=== PATIENT | male | born 1970 | race Caucasian/White ===

== ENCOUNTER → 2017-04-21 | Outpatient (CLI) | payer OTHER ==
[2017-04-21 08:23] LABS: Blood Urea Nitrogen 13 mg/dL (9-20)
--- NOTE | 2017-04-21 09:01 | CT ---
EXAMINATION TYPE: CT chest wo/w con DATE OF EXAM: 04/21/2017 COMPARISON: Radiographs 03/10/2017 HISTORY: 47-year-old male Abn CXR, SOB TECHNIQUE: Scanning of the chest before and after the administration of 100 mL of Omnipaque 300. Cor onal/sagittal reconstructions performed. CT DLP: 1335.5mGycm. Automatic exposure control utilized for a dose reduction. FINDINGS: Heart is normal size without pericardial effusion. Aorta is normal caliber with conventional arch vessel branching anatomy. Bilateral gynecomastia partially visualized. Precarinal lymph node measures 8 mm. No thoracic lymphad enopathy by CT size criteria. Evaluation of the lungs shows interval clearance of much of the density seen on 03/10/2017 radiograph s. There is mild to moderate diffuse bronchial wall thickening and some strandy atelectasis at the an terior medial mid to lower lungs. No consolidation or pleural effusion. No suspicious pulmonary nodul e or mass is seen. Visualized upper abdomen shows a small 1 cm low-density nodule in the left adrenal gland with attenua tion on noncontrast series of -2 Hounsfield units compatible with a lipid rich adrenal adenoma. Hilar splenule. Bones: Mild endplate spondylosis midthoracic spine. No osseous destructive process. IMPRESSION: 1. Interval clearance of the densities seen on prior chest x-ray. No suspicious pulmonary nodule and no evidence for chronic interstitial lung disease. 2. Mild to moderate bronchial wall thickening could represent bronchitis or chronic asthma.
== END | disposition home or self-care (01) ==
LOC: RADCTMAIN 07:54
PROVIDERS: ATTEND Family Medicine
DX: J98.09 Other diseases of bronchus, not elsewhere classified (principal); R91.8 Other nonspecific abnormal finding of lung field
CPT/HCPCS: 82565; 84520; 71270; 36415; Q9967

== ENCOUNTER 2017-10-24 22:46 | Emergency (ER) | payer BC, OTHER ==
[2017-10-24 23:13] LABS: Glucose,Whole Blood 467 mg/dL (75-99)
[2017-10-24] MEDS ORDERED: SODIUM CHLORIDE 0.9% 1,000 ML IV ONE (23:22)
[2017-10-24 23:32] LABS: Appearance,Urine Clear (Clear); Bilirubin,Urine Negative (Negative); Blood,Urine Negative (Negative); Color,Urine Light Yellow; Glucose,Urine (UA) 4+ (Negative); Ketones,Urine Negative (Negative); Leukocyte Esterase,Urine Negative (Negative); Nitrite,Urine Negative (Negative); Protein,Urine Negative (Negative); Specific Gravity,Urine 1.027 (1.001-1.035); Urobilinogen,Urine <2.0 mg/dL (<2.0)
[2017-10-24 23:37] LABS: Basophils # (A) 0.1 k/uL (0-0.2); Basophils % (A) 1 %; Eosinophils # (A) 0.4 k/uL (0-0.7); Eosinophils % (A) 3 %; HCT 44.9 % (39.0-53.0); HGB 14.9 gm/dL (13.0-17.5); Lymphocytes # (A) 2.5 k/uL (1.0-4.8); Lymphocytes % (A) 21 %; MCH 28.6 pg (25.0-35.0); MCHC 33.1 g/dL (31.0-37.0); MCV 86.3 fL (80.0-100.0); Monocytes # (A) 0.5 k/uL (0-1.0); Monocytes % (A) 4 %; Neutrophils # (A) 8.5 k/uL (1.3-7.7); Neutrophils % (A) 70 %; Platelet Count 285 k/uL (150-450); RDW 12.5 % (11.5-15.5); WBC 12.1 k/uL (3.8-10.6)
--- NOTE | 2017-10-24 23:44 | ED ---
General Adult HPI - General Chief complaint: Recheck/Abnormal Lab/Rx Stated complaint: high sugar,vision problems Time Seen by Provider: 10/24/17 23:22 Source: patient, RN notes reviewed Mode of arrival: ambulatory Limitations: no limitations - History of Present Illness Initial comments: This is a 47-year-old male who presents to the emergency department with chief complaint of high blood sugar. Patient states he was diagnosed with type 2 diabetes 6-8 years ago. He states that he takes metformin, Lantus and Glimiperide. Patient states that he recently obtained a new job. 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 He states that because of this, he has become noncompliant with his medications as he thought he was doing well. He states that he does not take his medications regularly like he is supposed to. He does state that he sees a doctor at [facility] [place]. Patient states that he was told by the doctor that if he ever developed a blood sugar greater than 400 he was to present to the emergency department. Patient states that he woke up at 10 PM this evening and his vision seemed blurry. He states that he didn't feel very well so he checked his blood sugar. He states that it was in the 400s. Patient states that at that time, he gave himself 40 units of Lantus. This was at approximately 10:30. Patient denies any recent fevers or chills, chest pain or shortness of breath, abdominal pain, nausea or vomiting, dysuria or hematuria, dizziness or headache. Patient denies any other medical issues or medications. - Related Data Home Medications Medication Instructions Recorded Confirmed Glimepiride [Amaryl] 4 mg PO AC-BID 03/04/17 10/24/17 Insulin Glargine [Lantus] 40 unit SQ HS 03/04/17 10/24/17 metFORMIN HCL 1,000 mg PO BID 03/04/17 10/24/17 Allergies Allergy/AdvReac Type Severity Reaction Status Date / Time No Known Allergies Allergy Verified 10/24/17 23:07 Review of Systems ROS Statement: Those systems with pertinent positive or pertinent negative responses have been documented in the HPI. ROS Other: All systems not noted in ROS Statement are negative. Past Medical History Past Medical History: Diabetes Mellitus History of Any Multi-Drug Resistant Organisms: None Reported Past Surgical History: Ear Surgery Past Anesthesia/Blood Transfusion Reactions: No Reported Reaction Past Psychological History: Depression Smoking Status: Current every day smoker Past Alcohol Use History: None Reported Past Drug Use History: Marijuana - Past Family History Father History Unknown: Yes Mother History Unknown: Yes General Exam - General Exam Comments Initial Comments: General: Awake and alert, well-developed; in no apparent distress. Obese white male lying comfortably on ED stretcher. HEENT: Head atraumatic, normocephalic. Pupils are equal, round and reactive to light. Extraocular movements intact. Oropharynx moist without erythema or exudate. Neck: Supple. Normal ROM. Cardiovascular: Regular rate and rhythm. No murmurs, rubs or gallops. Chest symmetrical. Respiratory: Lungs clear to auscultation bilaterally. No wheezes, rales or rhonchi. Normal respiratory effort with no use of accessory muscles. Abdomen: Soft, non-tender, non-distended. No rigidity, rebound or guarding. Normal bowel sounds in all 4 quadrants. Musculoskeletal: Normal ROM, no tenderness bilateral upper and lower extremities. Skin: [place], warm and dry without rashes or lesions. Neurological: Alert and oriented x3. CN II-XII grossly intact. Speech is fluent and answers are appropriate. No focal neuro deficits. Psychiatric: Normal mood and affect. No overt signs of depression or anxiety noted. Limitations: no limitations Course Vital Signs 10/24/17 10/24/17 10/25/17 22:50 23:35 01:24 Temperature 98.6 F Pulse Rate 88 81 76 Respiratory 20 17 16 Rate Blood Pressure 133/82 117/63 99/58 O2 Sat by Pulse 96 95 97 Oximetry 10/25/17 02:49 Temperature 98.2 F Pulse Rate 62 Respiratory 17 Rate Blood Pressure 95/56 O2 Sat by Pulse 97 Oximetry Medical Decision Making - Medical Decision Making This is a 47-year-old male who presents to the emergency department chief complaint of hyperglycemia. Patient has been noncompliant with his medications. He is a type II diabetic. On presentation to the emergency department, patient is found to have a glucose of 467. CBC revealed a slightly elevated white blood cell count of 12.1 with a left shift at 8.5. CMP was essentially unremarkable other than a glucose at 454. UA revealed 4+ glucose, negative ketones. Acetone is negative. Patient given 2 L bolus and 12 units of subcutaneous Humalog. Blood glucose level has stabilized. Patient's vital signs have been stable and he is in no acute distress. He will be discharged home at this time. Recommended following up with his doctor and to regularly take his prescribed medications for diabetes. Patient is in agreement with plan and voices understanding. He will be discharged home at this time. All questions were answered. - Lab Data Result diagrams: 10/24/17 23:08 10/24/17 23:08 Lab Results 10/24/17 10/24/17 10/24/17 Range/Units 23:08 23:08 23:08 WBC 12.1 H (3.8-10.6) k/uL RBC 5.20 (4.30-5.90) m/uL Hgb 14.9 (13.0-17.5) gm/dL Hct 44.9 (39.0-53.0) % MCV 86.3 (80.0-100.0) fL MCH 28.6 (25.0-35.0) pg MCHC 33.1 (31.0-37.0) g/dL RDW 12.5 (11.5-15.5) % Plt Count 285 (150-450) k/uL Neutrophils % 70 % Lymphocytes % 21 % Monocytes % 4 % Eosinophils % 3 % Basophils % 1 % Neutrophils # 8.5 H (1.3-7.7) k/uL Lymphocytes # 2.5 (1.0-4.8) k/uL Monocytes # 0.5 (0-1.0) k/uL Eosinophils # 0.4 (0-0.7) k/uL Basophils # 0.1 (0-0.2) k/uL Sodium 136 L (137-145) mmol/L Potassium 4.6 (3.5-5.1) mmol/L Chloride 102 (98-107) mmol/L Carbon Dioxide 23 (22-30) mmol/L Anion Gap 11 mmol/L BUN 21 H (9-20) mg/dL Creatinine 0.90 (0.66-1.25) mg/dL Est GFR (CKD-EPI)AfAm >90 (>60 ml/min/1.73 sqM) Est GFR (CKD-EPI)NonAf >90 (>60 ml/min/1.73 sqM) Glucose 454 H* (74-99) mg/dL POC Glucose (mg/dL) (75-99) mg/dL POC Glu Flat Folder ID Calcium 9.3 (8.4-10.2) mg/dL Phosphorus 4.2 (2.5-4.5) mg/dL Magnesium 1.9 (1.6-2.3) mg/dL Total Bilirubin 0.3 (0.2-1.3) mg/dL AST 25 (17-59) U/L ALT 33 (21-72) U/L Alkaline Phosphatase 119 (38-126) U/L Total Protein 7.0 (6.3-8.2) g/dL Albumin 4.1 (3.5-5.0) g/dL Urine Color Light Yellow Urine Appearance Clear (Clear) Urine pH 6.0 (5.0-8.0) Ur Specific [place] 1.027 (1.001-1.035) Urine Protein Negative (Negative) Urine Glucose (UA) 4+ H (Negative) Urine Ketones Negative (Negative) Urine Blood Negative (Negative) Urine Nitrite Negative (Negative) Urine Bilirubin Negative (Negative) Urine Urobilinogen <2.0 (<2.0) mg/dL Ur Leukocyte Esterase Negative (Negative) Acetone, Qual Negative (Negative) 10/24/17 10/25/17 10/25/17 Range/Units 23:11 01:06 02:48 WBC (3.8-10.6) k/uL RBC (4.30-5.90) m/uL Hgb (13.0-17.5) gm/dL Hct (39.0-53.0) % MCV (80.0-100.0) fL MCH (25.0-35.0) pg MCHC (31.0-37.0) g/dL RDW (11.5-15.5) % Plt Count (150-450) k/uL Neutrophils % % Lymphocytes % % Monocytes % % Eosinophils % % Basophils % % Neutrophils # (1.3-7.7) k/uL Lymphocytes # (1.0-4.8) k/uL Monocytes # (0-1.0) k/uL Eosinophils # (0-0.7) k/uL Basophils # (0-0.2) k/uL Sodium (137-145) mmol/L Potassium (3.5-5.1) mmol/L Chloride (98-107) mmol/L Carbon Dioxide (22-30) mmol/L Anion Gap mmol/L BUN (9-20) mg/dL Creatinine (0.66-1.25) mg/dL Est GFR (CKD-EPI)AfAm (>60 ml/min/1.73 sqM) Est GFR (CKD-EPI)NonAf (>60 ml/min/1.73 sqM) Glucose (74-99) mg/dL POC Glucose (mg/dL) 467 H 338 H 137 H (75-99) mg/dL POC Glu Flat Folder ID [facility] [facility] Danielle Gorecki, Joanna Calcium (8.4-10.2) mg/dL Phosphorus (2.5-4.5) mg/dL Magnesium (1.6-2.3) mg/dL Total Bilirubin (0.2-1.3) mg/dL AST (17-59) U/L ALT (21-72) U/L Alkaline Phosphatase (38-126) U/L Total Protein (6.3-8.2) g/dL Albumin (3.5-5.0) g/dL Urine Color Urine Appearance (Clear) Urine pH (5.0-8.0) Ur Specific [place] (1.001-1.035) Urine Protein (Negative) Urine Glucose (UA) (Negative) Urine Ketones (Negative) Urine Blood (Negative) Urine Nitrite (Negative) Urine Bilirubin (Negative) Urine Urobilinogen (<2.0) mg/dL Ur Leukocyte Esterase (Negative) Acetone, Qual (Negative) Disposition Clinical Impression: Hyperglycemia due to type 2 diabetes mellitus Disposition: HOME SELF-CARE Condition: Good Instructions: Diabetic Hyperglycemia (ED) Additional Instructions: Please follow up with primary care provider within 1-2 days. Return to emergency department if symptoms should worsen or any concerns arise. Is patient prescribed a controlled substance at d/c from ED?: No Referrals: Wali Obrien DO [Doctor of Osteopathic Medicine] - 1-2 days Time of Disposition: 03:04
[2017-10-24 23:46] LABS: ALT 33 U/L (21-72); AST 25 U/L (17-59); Albumin 4.1 g/dL (3.5-5.0); Alkaline Phosphatase 119 U/L (38-126); Anion Gap 11 mmol/L; Blood Urea Nitrogen 21 mg/dL (9-20); Calcium 9.3 mg/dL (8.4-10.2); Carbon Dioxide 23 mmol/L (22-30); Chloride 102 mmol/L (98-107); Magnesium 1.9 mg/dL (1.6-2.3); Phosphorus 4.2 mg/dL (2.5-4.5); Potassium 4.6 mmol/L (3.5-5.1); Sodium 136 mmol/L (137-145); Total Bilirubin 0.3 mg/dL (0.2-1.3)
[2017-10-24 23:50] LABS: Glucose 454 mg/dL (74-99)
[2017-10-24] MEDS ORDERED: SODIUM CHLORIDE 0.9% 1,000 ML IV STA (23:56)
[2017-10-24] MEDS ORDERED: INSULIN ASPART 100 UNIT/ML 1 ML 10 ML VIAL SQ ONE (23:56)
[2017-10-25 01:08] LABS: Glucose,Whole Blood 338 mg/dL (75-99)
[2017-10-25 02:49] LABS: Glucose,Whole Blood 137 mg/dL (75-99)
[2017-10-25 02:50] VITALS: BP 95/56; PULSE 62; RESP 17; TEMP 98.2
== END 2017-10-25 03:34 | disposition home or self-care (01) ==
LOC: EC 22:46
DX: E11.65 Type 2 diabetes mellitus with hyperglycemia (principal); F17.200 Nicotine dependence, unspecified, uncomplicated; Z79.4 Long term (current) use of insulin
CPT/HCPCS: 36415; 80053; 81003; 82009; 83735; 84100; 85025; 96360; 96361; 99283

== ENCOUNTER 2018-12-29 03:27 | Observation (INO) | payer OTHER, BC ==
[2018-12-29] MEDS ORDERED: SODIUM CHLORIDE 0.9% 500 ML 500 ML IV STA (03:56)
--- NOTE | 2018-12-29 04:00 | ED ---
SOB HPI - General Chief Complaint: Shortness of Breath Stated Complaint: SOB Lft arm numbness Time Seen by Provider: 12/29/18 03:41 Source: patient, family Mode of arrival: ambulatory Limitations: no limitations - History of Present Illness Initial Comments: 's patient is a 48-year-old man who presents to be evaluated for shortness of breath. The patient states that this had developed after he had gone to work tonight around 11 PM. He states that it felt like he was not able to catch his breath while at work. He also described a feeling like he had a muscle cramp in the upper part of his left chest wall. The patient did not experience diaphore sis, nausea vomiting, palpitations or syncope. MD Complaint: shortness of breath, cough Onset/Timin -: hour(s) Consistency: constant Improves With: nothing Worsens With: exertion Associated Symptoms: chest pain Treatments Prior to Arrival: none - Related Data Home Medications Medication Instructions Recorded Confirmed Glimepiride [Amaryl] 4 mg PO AC-BID 03/04/17 10/24/17 Insulin Glargine [Lantus] 40 unit SQ HS 03/04/17 10/24/17 metFORMIN HCL 1,000 mg PO BID 03/04/17 10/24/17 Allergies Allergy/AdvReac Type Severity Reaction Status Date / Time No Known Allergies Allergy Verified 12/29/18 03:36 Review of Systems ROS Statement: Those systems with pertinent positive or pertinent negative responses have been documented in the HPI. ROS Other: All systems not noted in ROS Statement are negative. Constitutional: Denies: fever, chills Respiratory: Reports: as per HPI, dyspnea. Denies: cough, wheezes, hemoptysis Cardiovascular: Reports: as per HPI, chest pain. Denies: palpitations, orthopnea, edema, syncope Gastrointestinal: Denies: abdominal pain, nausea, vomiting Genitourinary: Denies: dysuria, hematuria Musculoskeletal: Denies: back pain Skin: Denies: rash Neurological: Denies: headache, weakness, numbness Past Medical History Past Medical History: Diabetes Mellitus History of Any Multi-Drug Resistant Organisms: None Reported Past Surgical History: Ear Surgery Past Anesthesia/Blood Transfusion Reactions: No Reported Reaction Past Psychological History: Depression Smoking Status: Current every day smoker Past Alcohol Use History: None Reported Past Drug Use History: Marijuana - Past Family History Father History Unknown: Yes Mother History Unknown: Yes General Exam Limitations: no limitations General appearance: alert, in no apparent distress Head exam: Present: atraumatic, normocephalic Eye exam: Present: normal appearance. Absent: scleral icterus, conjunctival injection ENT exam: Present: mucous membranes dry Neck exam: Present: normal inspection, full ROM Respiratory exam: Present: normal lung sounds bilaterally. Absent: respiratory distress, wheezes, rales, rhonchi, stridor Cardiovascular Exam: Present: regular rate, normal rhythm, normal heart sounds. Absent: systolic murmur, diastolic murmur, rubs, gallop GI/Abdominal exam: Present: soft. Absent: distended, tenderness, guarding, rebound, rigid, mass Extremities exam: Present: normal inspection, normal capillary refill. Absent: pedal edema, calf tenderness Back exam: Present: normal inspection. Absent: CVA tenderness (R), CVA tenderness (L) Neurological exam: Present: alert Skin exam: Present: warm, dry, intact, normal color. Absent: rash, cyanosis, diaphoretic, erythema, petechiae, pallor, mottled Course Vital Signs 12/29/18 12/29/18 03:31 04:33 Temperature 97.4 F L Pulse Rate 79 Respiratory 20 18 Rate Blood Pressure 114/74 O2 Sat by Pulse 100 Oximetry Medical Decision Making - Lab Data Result diagrams: 12/29/18 04:13 12/29/18 04:13 Lab Results 12/29/18 12/29/18 12/29/18 Range/Units 04:13 04:13 04:13 WBC 15.7 H (3.8-10.6) k/uL RBC 5.44 (4.30-5.90) m/uL Hgb 16.1 (13.0-17.5) gm/dL Hct 48.2 (39.0-53.0) % MCV 88.6 (80.0-100.0) fL MCH 29.6 (25.0-35.0) pg MCHC 33.4 (31.0-37.0) g/dL RDW 12.4 (11.5-15.5) % Plt Count 301 (150-450) k/uL Neutrophils % 75 % Lymphocytes % 18 % Monocytes % 3 % Eosinophils % 3 % Basophils % 0 % Neutrophils # 11.7 H (1.3-7.7) k/uL Lymphocytes # 2.8 (1.0-4.8) k/uL Monocytes # 0.5 (0-1.0) k/uL Eosinophils # 0.4 (0-0.7) k/uL Basophils # 0.1 (0-0.2) k/uL PT 9.5 (9.0-12.0) sec INR 0.9 (<1.2) APTT 23.2 (22.0-30.0) sec D-Dimer 0.24 (<0.60) mg/L FEU Sodium 137 (137-145) mmol/L Potassium 4.4 (3.5-5.1) mmol/L Chloride 107 (98-107) mmol/L Carbon Dioxide 20 L (22-30) mmol/L Anion Gap 10 mmol/L BUN 17 (9-20) mg/dL Creatinine 1.03 (0.66-1.25) mg/dL Est GFR (CKD-EPI)AfAm >90 (>60 ml/min/1.73 sqM) Est GFR (CKD-EPI)NonAf 87 (>60 ml/min/1.73 sqM) Glucose 220 H (74-99) mg/dL Calcium 8.8 (8.4-10.2) mg/dL Total Bilirubin 0.2 (0.2-1.3) mg/dL AST 18 (17-59) U/L ALT 27 (21-72) U/L Alkaline Phosphatase 99 (38-126) U/L Troponin I (0.000-0.034) ng/mL NT-Pro-B Natriuret Pep pg/mL Total Protein 6.4 (6.3-8.2) g/dL Albumin 3.7 (3.5-5.0) g/dL 12/29/18 12/29/18 Range/Units 04:13 04:13 WBC (3.8-10.6) k/uL RBC (4.30-5.90) m/uL Hgb (13.0-17.5) gm/dL Hct (39.0-53.0) % MCV (80.0-100.0) fL MCH (25.0-35.0) pg MCHC (31.0-37.0) g/dL RDW (11.5-15.5) % Plt Count (150-450) k/uL Neutrophils % % Lymphocytes % % Monocytes % % Eosinophils % % Basophils % % Neutrophils # (1.3-7.7) k/uL Lymphocytes # (1.0-4.8) k/uL Monocytes # (0-1.0) k/uL Eosinophils # (0-0.7) k/uL Basophils # (0-0.2) k/uL PT (9.0-12.0) sec INR (<1.2) APTT (22.0-30.0) sec D-Dimer (<0.60) mg/L FEU Sodium (137-145) mmol/L Potassium (3.5-5.1) mmol/L Chloride (98-107) mmol/L Carbon Dioxide (22-30) mmol/L Anion Gap mmol/L BUN (9-20) mg/dL Creatinine (0.66-1.25) mg/dL Est GFR (CKD-EPI)AfAm (>60 ml/min/1.73 sqM) Est GFR (CKD-EPI)NonAf (>60 ml/min/1.73 sqM) Glucose (74-99) mg/dL Calcium (8.4-10.2) mg/dL Total Bilirubin (0.2-1.3) mg/dL AST (17-59) U/L ALT (21-72) U/L Alkaline Phosphatase (38-126) U/L Troponin I <0.012 (0.000-0.034) ng/mL NT-Pro-B Natriuret Pep 24 pg/mL Total Protein (6.3-8.2) g/dL Albumin (3.5-5.0) g/dL - EKG Data EKG shows normal: sinus rhythm, axis (Normal), intervals (Normal), QRS complexes (Normal), ST-T waves (Normal) Rate: normal (Rate 77 bpm) Interpretation: other (Low voltage QRS complex) Disposition Clinical Impression: Dyspnea, Chest pain, atypical, Type 2 diabetes mellitus Disposition: ADMITTED IP TO THIS [facility] Condition: Good Is patient prescribed a controlled substance at d/c from ED?: No Referrals: [facility],Clinic [Primary Care Provider] - 1-2 days
[2018-12-29 04:24] LABS: Basophils # (A) 0.1 k/uL (0-0.2); Basophils % (A) 0 %; Eosinophils # (A) 0.4 k/uL (0-0.7); Eosinophils % (A) 3 %; HCT 48.2 % (39.0-53.0); HGB 16.1 gm/dL (13.0-17.5); Lymphocytes # (A) 2.8 k/uL (1.0-4.8); Lymphocytes % (A) 18 %; MCH 29.6 pg (25.0-35.0); MCHC 33.4 g/dL (31.0-37.0); MCV 88.6 fL (80.0-100.0); Mean Platelet Volume 5.5; Monocytes # (A) 0.5 k/uL (0-1.0); Monocytes % (A) 3 %; Neutrophils # (A) 11.7 k/uL (1.3-7.7); Neutrophils % (A) 75 %; Platelet Count 301 k/uL (150-450); RBC 5.44 m/uL (4.30-5.90); RDW 12.4 % (11.5-15.5); WBC 15.7 k/uL (3.8-10.6)
[2018-12-29 04:32] LABS: ALT 27 U/L (21-72); AST 18 U/L (17-59); African American GFR (CKD) >90 (>60 ml/min/1.73 sqM); Albumin 3.7 g/dL (3.5-5.0); Alkaline Phosphatase 99 U/L (38-126); Anion Gap 10 mmol/L; Blood Urea Nitrogen 17 mg/dL (9-20); Calcium 8.8 mg/dL (8.4-10.2); Carbon Dioxide 20 mmol/L (22-30); Chloride 107 mmol/L (98-107); Glucose 220 mg/dL (74-99); Potassium 4.4 mmol/L (3.5-5.1); Sodium 137 mmol/L (137-145); Total Bilirubin 0.2 mg/dL (0.2-1.3); Total Protein 6.4 g/dL (6.3-8.2)
--- NOTE | 2018-12-29 04:36 | XR ---
EXAMINATION TYPE: XR chest 2V DATE OF EXAM: 12/29/2018 COMPARISON: 03/10/2017 HISTORY: Difficulty breathing TECHNIQUE: Frontal and lateral views of the chest are obtained. FINDINGS: Heart and mediastinum are normal. Lungs are clear. Diaphragm is normal. Bony thorax appear s normal. There are chest leads. IMPRESSION: Normal chest. Normal heart. There is clearing of the pulmonary interstitial edema compar ed to old exam.
[2018-12-29 04:37] LABS: D-Dimer 0.24 mg/L FEU (<0.60); INR 0.9 (<1.2); Partial Thromboplastin Time 23.2 sec (22.0-30.0); Prothrombin Time 9.5 sec (9.0-12.0)
[2018-12-29] MEDS ORDERED: NITROGLYCERIN SL TABS 0.4 MG TAB SUBLINGUAL PRN (05:53)
[2018-12-29 07:04] VITALS: BMI 43.5
[2018-12-29] MEDS ORDERED: SODIUM CHLORIDE 0.9% 1,000 ML IV SCH (07:45)
[2018-12-29] MEDS ORDERED: LOSARTAN 25 MG TAB PO SCH (09:00)
[2018-12-29] MEDS ORDERED: metFORMIN 500 MG TAB PO SCH (09:00)
[2018-12-29] MEDS: GLIMEPIRIDE 4 MG TAB PO SCH ×2 (09:27→15:17)
[2018-12-29 11:16] VITALS: RESP 14
--- NOTE | 2018-12-29 11:31 | ECHOF ---
Referral Reason:chest pain MEASUREMENTS -------- HEIGHT: 175.3 cm WEIGHT: 133.8 kg BP: RVIDd: 3.2 cm (< 3.3) IVSd: 1.0 cm (0.6 - 1.1) LVIDd: 4.8 cm (3.9 - 5.3) LVPWd: 1.1 cm (0.6 - 1.1) IVSs: 1.3 cm LVIDs: 3.6 cm LVPWs: 1.4 cm LA Diam: 3.5 cm (2.7 - 3.8) Ao Diam: 3.0 cm (2.0 - 3.7) AV Cusp: 1.9 cm (1.5 - 2.6) LA Diam: 4.1 cm (2.7 - 3.8) MV EXCURSION: 12.495 mm (> 18.000) MV EF SLOPE: 48 mm/s (70 - 150) EPSS: 0.3 cm MV E Delvin: 0.66 m/s MV DecT: 226 ms MV A Delvin: 0.76 m/s MV E/A Ratio: 0.87 RAP: 5.00 mmHg RVSP: 14.24 mmHg FINDINGS -------- Sinus rhythm. Morbid Obesity This was a techncally difficult study with suboptimal views, , Lumason utilized for enhancement of im ages. LV size, wall thickness and systolic function are normal, with an EF greater than 55%. The left ying tricular size is normal. The right ventricle is normal in size. The left atrial size is normal. The right atrial size is normal. 5.0mg OF Lumason UTLIZED: 2 OR MORE WALL SEGMENTS NOT VISUALIZED. There is mild aortic valve sclerosis. Mild mitral annular calcification present. Mild mitral regurgitation is present. Mild tricuspid regurgitation present. Right ventricular systolic pressure is normal at < 35 mmHg. There is no evidence of pulmonary hypertension. The pulmonic valve was not well visualized. The aortic root size is normal. There is no pericardial effusion. CONCLUSIONS -------- 1. Sinus rhythm. 2. Morbid Obesity 3. This was a techncally difficult study with suboptimal views, , Lumason utilized for enhancement of images. 4. LV size, wall thickness and systolic function are normal, with an EF greater than 55%. 5. The left ventricular size is normal. 6. The right ventricle is normal in size. 7. The left atrial size is normal. 8. The right atrial size is normal. 9. 5.0mg OF Lumason UTLIZED: 2 OR MORE WALL SEGMENTS NOT VISUALIZED. 10. There is mild aortic valve sclerosis. 11. Mild mitral annular calcification present. 12. Mild mitral regurgitation is present. 13. Right ventricular systolic pressure is normal at < 35 mmHg. 14. There is no evidence of pulmonary hypertension. 15. The pulmonic valve was not well visualized. 16. The aortic root size is normal. 17. There is no pericardial effusion. [employer] ARCHITECT: Silvia Dangelo RDCS
--- NOTE | 2018-12-29 12:08 | ECHOS ---
STRESS ECHOCARDIOGRAM INDICATIONS: Chest pain/shortness of breath. BASELINE HEART RATE: 67 BASELINE BLOOD PRESSURE: 102/38 MAXIMUM HEART RATE: 153 MAXIMUM BLOOD PRESSURE: 154/84 85% MPHR: 148 100% MPHR: 174 METS: 9.1 MAXIMUM STAGE REACHED: 3 TOTAL EXERCISE TIME: 7:30 CLINICAL INFORMATION: Patient was exercised for a total period of 7 minutes and 30 seconds. The peak heart rate of 153 was achieved. Maximum blood pressure 154/84 mmHg was noted. Patient did not complain of any chest pain during the test. Resting EKG shows normal sinus rhythm with normal NC interval and QRS duration and normal ST-T waves. During exercise, J- point depression with upsloping ST segments are noted. The baseline echocardiographic images reveals normal left ventricular chamber size with normal left ventricular systolic function in the immediate postexercise period. Normal increase in the wall thickness and contractility is noted. FINAL IMPRESSION: 1. This stress echocardiographic study is negative for stress-induced ischemia. 2. Patient's exercise tolerance is average. 3. Patient did not complain of any chest pain during the test. MMODL / IJN: [id number] /
--- NOTE | 2018-12-29 13:11 | CONS ---
CONSULTATION Jeovanny Sauceda is a 48-year-old gentleman with type 2 diabetes, obesity who had a negative stress test performed in our office in April 2017 and this was a nuclear scan. He walked for over 7 minutes. This gentleman came in through the emergency room because while he was working he suddenly felt that he could not get a full breath. He then had some sharp pains in the chest. Very atypical in nature, but occurred while he was working and came in with the symptoms. Troponins are normal. He is resting comfortably without symptoms. He has diabetes and according to him the blood sugars are under decent control. His initial troponin is normal. A repeat troponin will be performed and I am recommending a stress echo on this patient. If this is normal, he can be discharged. I also advised him to get into an exercise program on a regular basis. At the time of my evaluation, he is asymptomatic, resting comfortably. PAST MEDICAL HISTORY: 1. Type 2 diabetes mellitus. 2. Obesity. 3. History of some previous ear surgery. ALLERGIES: None. MEDICATIONS: Medications include metformin, Zoloft, and insulin. PHYSICAL EXAMINATION: On examination, blood pressure is 130/70, pulse rate 70 per minute, regular. HEENT: Unremarkable. Fundus was not examined by me. Neck is supple. No JVD. I do not hear a carotid bruit. There is no thyromegaly. Heart exam reveals S1, S2 heard normally. No rub, murmur or gallop. Lungs are clear. Abdomen is soft, nontender. Lower extremities reveal normal pulses. No edema. Central nervous system is normal. EKG revealed sinus mechanism within normal limits. IMPRESSION: 1. Atypical chest pain. 2. Type 2 diabetes. 3. Obesity. 4. History of smoking. RECOMMENDATION: I recommended to the patient regarding the smoking cessation, we have counseled him. Advised to have a stress echo and echo and if these are normal, he can be discharged and follow up with his primary care physician. Thank you very much for the consult. MMODL / IJN: [id number] /
[2018-12-29 15:17] VITALS: BP 107/52; PULSE 60; TEMP 97.8
[2018-12-29] MEDS ORDERED: HEPARIN SODIUM,PORCINE 5,000 UNIT/ML 1 ML VIAL SQ SCH (16:00)
[2018-12-29 16:54] LABS: Glucose,Whole Blood 165 mg/dL (75-99)
[2018-12-29 17:24] LABS: HCT 46.8 % (39.0-53.0); HGB 15.2 gm/dL (13.0-17.5); MCH 29.6 pg (25.0-35.0); MCHC 32.5 g/dL (31.0-37.0); MCV 91.2 fL (80.0-100.0); Mean Platelet Volume 6.3; Platelet Count 289 k/uL (150-450); RBC 5.13 m/uL (4.30-5.90); RDW 12.5 % (11.5-15.5); WBC 13.2 k/uL (3.8-10.6)
[2018-12-29] MEDS ORDERED: INSULIN DETEMIR (LEVEMIR) 100 UNIT/ML SYR SQ SCH (21:00)
[2018-12-30] MEDS ORDERED: ASPIRIN 325 MG TAB PO SCH (09:00)
--- NOTE | 2019-01-09 20:56 | P.HPIM ---
History of Present Illness H&P Date: 12/29/18 Chief Complaint: Chest pain patient is a 48-year-old man with a known history of diabetes type 2, depression and nicotine addiction as well as marijuana use who presents to be evaluated for shortness of breath. The patient states that this had developed after he had gone to work tonight around 11 PM. He states that it felt like he was not able to catch his breath while at work. He also described a feeling like he had a muscle cramp in the upper part of his left chest wall. The patient did not experience diaphoresis, nausea vomiting, palpitations or syncope. EKG showed normal sinus rhythm Chest x-ray showed no acute abnormalities. WBC 15.2, glucose 220 Troponin 3 negative Review of Systems Constitutional: Patient denies any fever or chills . No generalized weakness or weight loss. Abdomen: Patient denied nausea vomiting and diarrhea and abdominal pain. Cardiovascular: Agent does have chest pain and short of breath no palpitations. Respiratory: patient denied any cough is from production. No shortness of breath Neurologic: Patient denied any numbness or tingling headache. Musculoskeletal: Patient denies any complaints of joint swelling or deformity. Skin: Negative Psychiatric: Negative Endocrine: No heat or cold intolerance. No recent weight gain. Genitourinary: No dysuria or hematuria. All other 14 point ROS negative except the above Past Medical History Past Medical History: Diabetes Mellitus History of Any Multi-Drug Resistant Organisms: None Reported Past Surgical History: Ear Surgery Additional Past Surgical History / Comment(s): lumpectomy in left breast, gangrenous cyst removed, abscess Past Anesthesia/Blood Transfusion Reactions: No Reported Reaction Past Psychological History: Depression Smoking Status: Current every day smoker Past Alcohol Use History: None Reported Additional Past Alcohol Use History / Comment(s): smokes 1 pack a day. Past Drug Use History: Marijuana - Past Family History Father History Unknown: Yes Mother History Unknown: Yes Medications and Allergies Home Medications Medication Instructions Recorded Confirmed Type Insulin Glargine [Lantus] 70 unit SQ HS 03/04/17 12/29/18 History metFORMIN HCL 1,000 mg PO BID 03/04/17 12/29/18 History INSULIN ASPART (NovoLOG) [NovoLOG See Protocol SQ AC-TID 12/29/18 12/29/18 History (formulary)] Sertraline [Zoloft] 100 mg PO HS 12/29/18 12/29/18 History Allergies Allergy/AdvReac Type Severity Reaction Status Date / Time No Known Allergies Allergy Verified 12/29/18 08:05 Physical Exam Vitals: Vital Signs Temp Pulse Pulse Resp BP BP Pulse Ox 12/29/18 15:16 97.8 F 60 14 107/52 96 12/29/18 15:01 82 14 12/29/18 11:16 98.2 F 82 14 102/68 96 12/29/18 08:00 98.2 F 68 14 118/70 98 12/29/18 06:54 98.0 F 69 16 117/70 98 12/29/18 06:06 71 18 111/69 98 12/29/18 04:33 18 12/29/18 03:31 97.4 F L 79 20 114/74 100 Intake and Output 12/29/18 12/29/18 12/29/18 06:59 14:59 22:59 Intake Total 1780 Balance 1780 Intake: Intake, IV Titration 700 Amount Sodium Chloride 0.9% 1, 700 000 ml @ 100 mls/hr IV . Q10H [facility] Rx#:[id number] Oral 1080 Other: Voiding Method Toilet Toilet Urinal Urinal Weight 133.81 kg PHYSICAL EXAMINATION: Patient is lying in the bed comfortably, no acute distress, awake alert and oriented.. HEENT: Normocephalic. Neck is supple. Pupils reactive. Nostrils clear. Oral cavi ty is moist. Ears reveal no drainage. Neck reveals no JVD, carotid bruits, or thyromegaly. CHEST EXAMINATION: Trachea is central. Symmetrical expansion. Lung pinon clear to auscultation and percussion. CARDIAC: Normal S1, S2 with no gallops. No murmurs ABDOMEN: Soft. Bowel sounds normal. No organomegaly. No abdominal bruits. Extremities: reveal no edema. No clubbing or cyanosis Neurologically awake, alert, oriented x3 with well-coordinated movements. No focal deficits noted Skin: No rash or skin lesions. Psychiatric: Coperative. Nonsuicidal Musculoskeletal: No joint swelling or deformity. Normal range of motion. Results CBC & Chem 7: 12/29/18 16:02 12/29/18 04:13 Labs: Abnormal Lab Results - Last 24 Hours (Table) 12/29/18 12/29/18 Range/Units 04:13 04:13 WBC 15.7 H (3.8-10.6) k/uL Neutrophils # 11.7 H (1.3-7.7) k/uL Carbon Dioxide 20 L (22-30) mmol/L Glucose 220 H (74-99) mg/dL Thrombosis Risk Factor Assmnt - DVT/VTE Prophylaxis DVT/VTE Prophylaxis: Pharmacologic Prophylaxis ordered - Choose All That Apply Any of the Below Risk Factors Present?: Yes Each Factor Represents 1 point: Age 41-60 years, Obesity (BMI >25) Thrombosis Risk Factor Assessment Total Risk Factor Score: 2 Thrombosis Risk Factor Assessment Level: Low Risk Assessment and Plan Assessment: Atypical chest pain. Ruled out ACS. Likely musculoskeletal Diabetes type 2 Morbid obesity BMI 40.6 Ongoing nicotine addiction and marijuana use DVT prophylaxis Plan: Patient be continued on telemetry monitoring and serial EKGs and troponins. Cardiology has seen the patient and recommended stress echocardiogram. Further recommendations based on the clinical course. Time with Patient: Greater than 30
--- NOTE | 2019-01-09 20:57 | P.DS ---
Providers Date of admission: 12/29/18 05:53 Expected date of discharge: 12/29/18 Attending physician: Lucien Miner Consults: 12/29/18 05:53 Consult Physician Routine Consulting Provider: Boo Willis Consult Reason/Comments: chest pain Do you want consulting provider notified?: Yes Primary care physician: [facility] Hospital Course: Discharge diagnosis Atypical chest pain. Ruled out ACS. Likely musculoskeletal Diabetes type 2 Morbid obesity BMI 40.6 Ongoing nicotine addiction and marijuana use DVT prophylaxis Hospital course patient is a 48-year-old man with a known history of diabetes type 2, depression and nicotine addiction as well as marijuana use who presents to be evaluated for shortness of breath. The patient states that this had developed after he had gone to work tonight around 11 PM. He states that it felt like he was not able to catch his breath while at work. He also described a feeling like he had a muscle cramp in the upper part of his left chest wall. The patient did not experience diaphoresis, nausea vomiting, palpitations or syncope. EKG showed normal sinus rhythm Chest x-ray showed no acute abnormalities. WBC 15.2, glucose 220 Troponin 3 negative Patient be continued on telemetry monitoring and serial EKGs and troponins. Cardiology has seen the patient and recommended stress echocardiogram which is negative.. Patient did improve symptomatically. Smoking cessation has been counseled extensively. Discharge physical examination was done and vitals reviewed Patient Condition at Discharge: Good Plan - Discharge Summary New Discharge Prescriptions: Continue Insulin Glargine [Lantus] 70 unit SQ HS metFORMIN HCL 1,000 mg PO BID Sertraline [Zoloft] 100 mg PO HS INSULIN ASPART (NovoLOG) [NovoLOG (formulary)] See Protocol SQ AC-TID Discontinued Naproxen Sodium [Aleve] 440 mg PO DAILY PRN PRN Reason: Pain Discharge Medication List Insulin Glargine [Lantus] 70 unit SQ HS 03/04/17 [History] metFORMIN HCL 1,000 mg PO BID 03/04/17 [History] INSULIN ASPART (NovoLOG) [NovoLOG (formulary)] See Protocol SQ AC-TID 12/29/18 [History] Sertraline [Zoloft] 100 mg PO HS 12/29/18 [History] Follow up Appointment(s)/Referral(s): [facility],Clinic [Primary Care Provider] - 1-2 days Patient Instructions/Handouts: Dyspnea (DC) Discharge Disposition: HOME SELF-CARE
== END 2018-12-29 18:18 | disposition home or self-care (01) ==
LOC: EC 03:27 → 3SCARD 05:53
PROVIDERS: ADMIT Hospitalist; ATTEND Hospitalist
DX: R07.89 Other chest pain (principal); R06.00 Dyspnea, unspecified; R05 Cough; E11.9 Type 2 diabetes mellitus without complications; F32.9 Major depressive disorder, single episode, unspecified; F17.210 Nicotine dependence, cigarettes, uncomplicated; E66.01 Morbid (severe) obesity due to excess calories; Z68.41 Body mass index [BMI] 40.0-44.9, adult; Z79.4 Long term (current) use of insulin; Z79.899 Other long term (current) drug therapy; I08.0 Rheumatic disorders of both mitral and aortic valves
CPT/HCPCS: 99285; 36415; 93005; 93306; 93351; 85379; 83880; 80053; 84484; 85025; 85027; 85610; 85730; 71046; G0378; Q9950

== ENCOUNTER 2020-07-05 17:34 | Emergency (ER) | payer BC, OTHER ==
[2020-07-05 17:54] VITALS: BP 142/84; PULSE 83; RESP 18; TEMP 98.2
[2020-07-05] MEDS ORDERED: ACET/COD 300 MG/30 MG STARTER PACK 6 TAB BTL PO STA (18:18)
[2020-07-05] MEDS ORDERED: IBUPROFEN 600 MG STARTER PACK 4 TAB BTL PO STA (18:18)
[2020-07-05] MEDS ORDERED: AMOXIC-POT CLAV 875MG STARTER PACK 2 TAB BTL PO STA (18:18)
--- NOTE | 2020-07-05 18:19 | ED ---
General Adult HPI - General Source: patient Mode of arrival: ambulatory Limitations: no limitations <Lisa Chen - Last Filed: 07/05/20 21:58> <Kristin Casiano - Last Filed: 07/08/20 02:12> - General Chief complaint: ENT Stated complaint: ENT Time Seen by Provider: 07/05/20 18:00 - History of Present Illness Initial comments: 50-year-old male patient presents to the emergency department today for foreign body to the left ear. Patient states the ear plug from his hearing aid became stuck in his ear. His unable to get it out. Reported mild discomfort. Denies any drainage from the ear. Denies any other injuries or concerns. (Lisa Chen) - Related Data Home Medications Medication Instructions Recorded Confirmed Insulin Glargine [Lantus] 70 unit SQ HS 03/04/17 12/29/18 metFORMIN HCL 1,000 mg PO BID 03/04/17 12/29/18 INSULIN ASPART (NovoLOG) [NovoLOG See Protocol SQ AC-TID 12/29/18 12/29/18 (formulary)] Sertraline [Zoloft] 100 mg PO HS 12/29/18 12/29/18 Previous Rx's Medication Instructions Recorded Amoxic-Pot Clav 875-125Mg 1 tab PO Q12HR #20 tablet 07/05/20 [Augmentin 875-125] Ibuprofen [Motrin] 600 mg PO Q8HR PRN #30 tab 07/05/20 Allergies Allergy/AdvReac Type Severity Reaction Status Date / Time No Known Allergies Allergy Verified 07/05/20 17:54 Review of Systems ROS Other: All systems not noted in ROS Statement are negative. <Lisa Chen - Last Filed: 07/05/20 21:58> ROS Other: All systems not noted in ROS Statement are negative. <Kristin Casiano - Last Filed: 07/08/20 02:12> ROS Statement: Those systems with pertinent positive or pertinent negative responses have been documented in the HPI. Past Medical History Past Medical History: Diabetes Mellitus History of Any Multi-Drug Resistant Organisms: None Reported Past Surgical History: Ear Surgery Additional Past Surgical History / Comment(s): lumpectomy in left breast, gangrenous cyst removed, abscess Past Anesthesia/Blood Transfusion Reactions: No Reported Reaction Past Psychological History: Depression Smoking Status: Current every day smoker Past Alcohol Use History: Rare Past Drug Use History: Marijuana - Past Family History Father History Unknown: Yes Mother History Unknown: Yes <Lisa Chen - Last Filed: 07/05/20 21:58> General Exam Limitations: no limitations General appearance: alert, in no apparent distress ENT exam: Present: normal exam, normal oropharynx, mucous membranes moist, TM's normal bilaterally Respiratory exam: Present: normal lung sounds bilaterally. Absent: respiratory distress, wheezes, rales, rhonchi, stridor Cardiovascular Exam: Present: regular rate, normal rhythm, normal heart sounds. Absent: systolic murmur, diastolic murmur, rubs, gallop, clicks Neurological exam: Present: alert, oriented X3, CN II-XII intact Psychiatric exam: Present: normal affect, normal mood Skin exam: Present: warm, dry, intact, normal color. Absent: rash <Lisa Chen - Last Filed: 07/05/20 21:58> Course Vital Signs 07/05/20 17:51 Temperature 98.2 F Pulse Rate 83 Respiratory 18 Rate Blood Pressure 142/84 O2 Sat by Pulse 97 Oximetry Medical Decision Making <Lisa Chen - Last Filed: 07/05/20 21:58> - Medical Decision Making 50-year-old male patient presents to the emergency department today for evaluation of foreign body to the left ear. The rubber portion of his hearing aid came off in his ear and he was unable to get it out. Prior to me seeing the patient nursing staff was able to retrieve the ear plug. I did inspect the ear canal and tympanic membrane which were unremarkable. He reports no pain with the ear. He'll be discharged to follow-up with the primary care physician for recheck in 1-2 days. Return parameters were discussed in detail. He verbalizes understanding and agrees with this plan. My attending is Dr. Casiano. (Lisa Chen) Disposition Is patient prescribed a controlled substance at d/c from ED?: No Time of Disposition: 18:19 <Lisa Chen - Last Filed: 07/05/20 21:58> <Kristin Casiano - Last Filed: 07/08/20 02:12> Clinical Impression: Dental abscess Disposition: HOME SELF-CARE Condition: Good Instructions (If sedation given, give patient instructions): Dental Abscess (ED) Additional Instructions: Take medications as directed. Apply cool compresses left side of the face. Follow-up with the dentist as soon as possible. Return to the emergency department for any new, worsening, or concerning symptoms. Prescriptions: Amoxic-Pot Clav 875-125Mg [Augmentin 875-125] 1 tab PO Q12HR #20 tablet Ibuprofen [Motrin] 600 mg PO Q8HR PRN #30 tab PRN Reason: Pain Referrals: [facility],Clinic [Primary Care Provider] - 1-2 days
--- NOTE | 2020-07-05 22:10 | ED ---
ENT HPI - General Source: patient Mode of arrival: ambulatory Limitations: no limitations <Lisa Chen - Last Filed: 07/05/20 22:07> <Kristin Casiano - Last Filed: 07/08/20 02:11> - General Chief complaint: ENT Stated complaint: ENT Time Seen by Provider: 07/05/20 18:00 - History of Present Illness Initial comments: 50-year-old male patient presents to the emergency department today for evaluation of pain over the left cheek and left jaw. Patient states symptoms started yesterday. Does report some mild swelling. Patient is concerned he may have a sinus infection. Denies any fever or chills. Denies any nasal congestion or drainage. States he does have poor dentition. Denies any trismus or difficulty swallowing. Denies any nausea or vomiting. Denies fever or chills. (Lisa Chen) - Related Data Home Medications Medication Instructions Recorded Confirmed Insulin Glargine [Lantus] 70 unit SQ HS 03/04/17 12/29/18 metFORMIN HCL 1,000 mg PO BID 03/04/17 12/29/18 INSULIN ASPART (NovoLOG) [NovoLOG See Protocol SQ AC-TID 12/29/18 12/29/18 (formulary)] Sertraline [Zoloft] 100 mg PO HS 12/29/18 12/29/18 Previous Rx's Medication Instructions Recorded Amoxic-Pot Clav 875-125Mg 1 tab PO Q12HR #20 tablet 07/05/20 [Augmentin 875-125] Ibuprofen [Motrin] 600 mg PO Q8HR PRN #30 tab 07/05/20 Allergies Allergy/AdvReac Type Severity Reaction Status Date / Time No Known Allergies Allergy Verified 07/05/20 17:54 Review of Systems ROS Other: All systems not noted in ROS Statement are negative. <Lisa Chen - Last Filed: 07/05/20 22:07> ROS Other: All systems not noted in ROS Statement are negative. <Kristin Casiano - Last Filed: 07/08/20 02:11> ROS Statement: Those systems with pertinent positive or pertinent negative responses have been documented in the HPI. Past Medical History Past Medical History: Diabetes Mellitus History of Any Multi-Drug Resistant Organisms: None Reported Past Surgical History: Ear Surgery Additional Past Surgical History / Comment(s): lumpectomy in left breast, gangrenous cyst removed, abscess Past Anesthesia/Blood Transfusion Reactions: No Reported Reaction Past Psychological History: Depression Smoking Status: Current every day smoker Past Alcohol Use History: Rare Past Drug Use History: Marijuana - Past Family History Father History Unknown: Yes Mother History Unknown: Yes <Lisa Chen - Last Filed: 07/05/20 22:07> General Exam Limitations: no limitations General appearance: alert, in no apparent distress, other (Physical well- developed, well-nourished adult male patient in no acute distress. Vital signs upon presentation are temperature 98.2F, pulse 83, respirations 18, blood pressure 142/84, pulse ox 97% on room air.) Eye exam: Present: normal appearance, PERRL, EOMI. Absent: scleral icterus, conjunctival injection, periorbital swelling ENT exam: Present: mucous membranes moist, other (Is left-sided facial swelling. Inspection of the teeth shows broken teeth numbers 11, 12, 13. These are broken down to the gumline with surrounding gingival erythema hyperplasia. No evidence of drainable abscess.) Respiratory exam: Present: normal lung sounds bilaterally. Absent: respiratory distress, wheezes, rales, rhonchi, stridor Cardiovascular Exam: Present: regular rate, normal rhythm, normal heart sounds. Absent: systolic murmur, diastolic murmur, rubs, gallop, clicks Neurological exam: Present: alert, oriented X3, CN II-XII intact Psychiatric exam: Present: normal affect, normal mood Skin exam: Present: warm, dry, intact, normal color. Absent: rash <Lisa Chen - Last Filed: 07/05/20 22:07> Course Vital Signs 07/05/20 17:51 Temperature 98.2 F Pulse Rate 83 Respiratory 18 Rate Blood Pressure 142/84 O2 Sat by Pulse 97 Oximetry Medical Decision Making <Lisa Chen - Last Filed: 07/05/20 22:07> <Kristin Casiano - Last Filed: 07/08/20 02:11> - Medical Decision Making 50-year-old male patient presents to the emergency department today for evaluation of left upper jaw pain sinus pain. Physical examination did reveal left-sided facial swelling. There were very poor dentition, his pain is most likely related to toothache and developing dental infection. We started on Augmentin given pain medication. Is instructed to follow up with a dentist as soon as possible. Return parameters were discussed in detail. He verbalizes understanding and agrees with this plan. My attending is Dr. Casiano. (Lisa Chen) I was available for consultation in the emergency department. The history and physical exam were done by the midlevel provider. I was consulted for this patients care. I reviewed the case with the midlevel provider and based on their presentation of the patient, I agree with the assessment, medical decision making and plan of care as documented. Chart was dictated using [employer] dictation software. Attempts were made to correct any dictation errors however some typographical errors may persist. Patient was seen during a national state of emergency due to the Covid-19 pandemic. (Kristin Casiano) Disposition Is patient prescribed a controlled substance at d/c from ED?: No <Lisa Chen - Last Filed: 07/05/20 22:07> <Kristin Casiano - Last Filed: 07/08/20 02:11> Clinical Impression: Dental abscess Disposition: HOME SELF-CARE Condition: Good Instructions (If sedation given, give patient instructions): Dental Abscess (ED) Additional Instructions: Take medications as directed. Apply cool compresses left side of the face. Follow-up with the dentist as soon as possible. Return to the emergency department for any new, worsening, or concerning symptoms. Prescriptions: Amoxic-Pot Clav 875-125Mg [Augmentin 875-125] 1 tab PO Q12HR #20 tablet Ibuprofen [Motrin] 600 mg PO Q8HR PRN #30 tab PRN Reason: Pain Referrals: [facility],Clinic [Primary Care Provider] - 1-2 days
== END 2020-07-05 18:36 | disposition home or self-care (01) ==
LOC: EC 17:34
DX: S02.5XXA Fracture of tooth (traumatic), initial encounter for closed fracture (principal); K04.7 Periapical abscess without sinus; E11.9 Type 2 diabetes mellitus without complications; F32.9 Major depressive disorder, single episode, unspecified; F12.90 Cannabis use, unspecified, uncomplicated; F17.200 Nicotine dependence, unspecified, uncomplicated; Z79.4 Long term (current) use of insulin; Z79.1 Long term (current) use of non-steroidal anti-inflammatories (NSAID); X58.XXXA Exposure to other specified factors, initial encounter
CPT/HCPCS: 99283

== ENCOUNTER 2021-03-27 22:52 | Observation (INO) | payer OTHER, BC ==
[2021-03-27] MEDS ORDERED: LORazepam 2 MG/ML INJ IV STA (23:12)
[2021-03-27] MEDS ORDERED: ACETAMINOPHEN TAB 500 MG TAB PO STA (23:12)
[2021-03-27] MEDS ORDERED: KETOROLAC 15 MG/ML 1 ML VIAL IVP STA (23:12)
[2021-03-27] MEDS ORDERED: MORPHINE SULFATE 2 MG/ML SYRINGE IVP STA (23:12)
[2021-03-27] MEDS ORDERED: SODIUM CHLORIDE 0.9% 500 ML 500 ML IV STA (23:12)
--- NOTE | 2021-03-27 23:15 | ED ---
SOB HPI - General Chief Complaint: Shortness of Breath Stated Complaint: RAMONA Time Seen by Provider: 03/27/21 23:12 Source: patient, EMS, RN notes reviewed, old records reviewed, Caregiver Mode of arrival: EMS Limitations: language barrier, altered mental status, physical limitation - History of Present Illness MD Complaint: shortness of breath, anxiety -: days(s) Severity scale (1-10): 7 Quality: aching Consistency: constant Improves With: oxygen, bronchodilators, upright position Worsens With: nothing Context: recent URI, recent illness Associated Symptoms: chest pain, pain with inspiration, cough, nausea/vomiting - Related Data Home Medications Medication Instructions Recorded Confirmed Insulin Glargine [Lantus Vial] 70 unit SQ HS 03/04/17 12/29/18 metFORMIN HCL [Glucophage] 1,000 mg PO BID 03/04/17 12/29/18 INSULIN ASPART (NovoLOG) [NovoLOG See Protocol SQ AC-TID 12/29/18 12/29/18 (formulary)] Sertraline [Zoloft] 100 mg PO HS 12/29/18 12/29/18 Previous Rx's Medication Instructions Recorded Amoxic-Pot Clav 875-125Mg 1 tab PO Q12HR #20 tablet 07/05/20 [Augmentin 875-125] Ibuprofen [Motrin] 600 mg PO Q8HR PRN #30 tab 07/05/20 Allergies Allergy/AdvReac Type Severity Reaction Status Date / Time No Known Allergies Allergy Verified 07/05/20 17:54 Review of Systems ROS Statement: Those systems with pertinent positive or pertinent negative responses have been documented in the HPI. ROS Other: All systems not noted in ROS Statement are negative. Past Medical History Past Medical History: Diabetes Mellitus History of Any Multi-Drug Resistant Organisms: None Reported Past Surgical History: Ear Surgery Additional Past Surgical History / Comment(s): lumpectomy in left breast, gangrenous cyst removed, abscess Past Anesthesia/Blood Transfusion Reactions: No Reported Reaction Past Psychological History: Depression Smoking Status: Current every day smoker Past Alcohol Use History: Rare Past Drug Use History: Marijuana - Past Family History Father History Unknown: Yes Mother History Unknown: Yes General Exam General appearance: alert, in no apparent distress Head exam: Present: atraumatic, normocephalic, normal inspection Eye exam: Present: normal appearance, PERRL, EOMI. Absent: scleral icterus, conjunctival injection, periorbital swelling ENT exam: Present: normal exam, mucous membranes moist Neck exam: Present: normal inspection. Absent: tenderness, meningismus, lym phadenopathy Respiratory exam: Present: normal lung sounds bilaterally. Absent: respiratory distress, wheezes, rales, rhonchi, stridor Cardiovascular Exam: Present: regular rate, normal rhythm, normal heart sounds. Absent: systolic murmur, diastolic murmur, rubs, gallop, clicks GI/Abdominal exam: Present: soft, normal bowel sounds. Absent: distended, tenderness, guarding, rebound, rigid Extremities exam: Present: normal inspection, full ROM, normal capillary refill. Absent: tenderness, pedal edema, joint swelling, calf tenderness Back exam: Present: normal inspection Neurological exam: Present: alert, oriented X3, CN II-XII intact Psychiatric exam: Present: normal affect, normal mood Skin exam: Present: warm, dry, intact, normal color. Absent: rash Course Vital Signs 03/27/21 03/27/21 03/28/21 22:57 23:04 00:04 Temperature 98.1 F Pulse Rate 76 74 71 Respiratory 18 18 18 Rate Blood Pressure 153/103 151/110 146/98 O2 Sat by Pulse 100 100 100 Oximetry 03/28/21 03/28/21 03/28/21 01:38 01:55 02:07 Temperature Pulse Rate 61 70 80 Respiratory 18 18 Rate Blood Pressure 153/95 161/86 O2 Sat by Pulse 100 100 Oximetry 03/28/21 02:17 Temperature Pulse Rate 70 Respiratory Rate Blood Pressure O2 Sat by Pulse Oximetry - Reevaluation(s) Reevaluation #1: 03/28/21 00:56 Attic record is reviewed Reevaluation #2: 03/28/21 00:56 Patient placed on BiPAP on arrival secondary to risk for distress Reevaluation #3: 03/28/21 02:57 Patient informed of results, questions answered Reevaluation #4: 03/28/21 02:57 Patient heart rate remains elevated 1:30 - Consultations Consultation #1: Spoke with [facility] Who will admit the patient Medical Decision Making - Medical Decision Making 50-year-old male maintained anxiety with elevated heart rate here in the ER. Patient will be admitted for evaluation and treatment by cardiology - Lab Data Result diagrams: 03/27/21 23:20 03/27/21 23:20 Lab Results 03/27/21 03/27/21 03/27/21 Range/Units 23:02 23:20 23:20 WBC 14.1 H (3.8-10.6) k/uL RBC 5.66 (4.30-5.90) m/uL Hgb 17.4 (13.0-17.5) gm/dL Hct 51.9 (39.0-53.0) % MCV 91.8 (80.0-100.0) fL MCH 30.8 (25.0-35.0) pg MCHC 33.6 (31.0-37.0) g/dL RDW 12.0 (11.5-15.5) % Plt Count 253 (150-450) k/uL MPV 7.5 Neutrophils % 70 % Lymphocytes % 19 % Monocytes % 6 % Eosinophils % 2 % Basophils % 1 % Neutrophils # 9.9 H (1.3-7.7) k/uL Lymphocytes # 2.7 (1.0-4.8) k/uL Monocytes # 0.9 (0-1.0) k/uL Eosinophils # 0.2 (0-0.7) k/uL Basophils # 0.1 (0-0.2) k/uL PT (9.0-12.0) sec INR (<1.2) APTT (22.0-30.0) sec D-Dimer (<0.60) mg/L FEU Sodium (137-145) mmol/L Potassium (3.5-5.1) mmol/L Chloride (98-107) mmol/L Carbon Dioxide (22-30) mmol/L Anion Gap mmol/L BUN (9-20) mg/dL Creatinine (0.66-1.25) mg/dL Est GFR (CKD-EPI)AfAm (>60 ml/min/1.73 sqM) Est GFR (CKD-EPI)NonAf (>60 ml/min/1.73 sqM) Glucose (74-99) mg/dL Plasma Lactic Acid Rafi (0.7-2.0) mmol/L Calcium (8.4-10.2) mg/dL Magnesium (1.6-2.3) mg/dL Total Bilirubin (0.2-1.3) mg/dL AST (17-59) U/L ALT (4-49) U/L Alkaline Phosphatase (38-126) U/L Lactate Dehydrogenase (313-618) U/L C-Reactive Protein (<1.0) mg/dL NT-Pro-B Natriuret Pep 29 pg/mL Total Protein (6.3-8.2) g/dL Albumin (3.5-5.0) g/dL Coronavirus (PCR) Not Detected (Not Detectd) 03/27/21 03/27/21 03/27/21 Range/Units 23:20 23:20 23:20 WBC (3.8-10.6) k/uL RBC (4.30-5.90) m/uL Hgb (13.0-17.5) gm/dL Hct (39.0-53.0) % MCV (80.0-100.0) fL MCH (25.0-35.0) pg MCHC (31.0-37.0) g/dL RDW (11.5-15.5) % Plt Count (150-450) k/uL MPV Neutrophils % % Lymphocytes % % Monocytes % % Eosinophils % % Basophils % % Neutrophils # (1.3-7.7) k/uL Lymphocytes # (1.0-4.8) k/uL Monocytes # (0-1.0) k/uL Eosinophils # (0-0.7) k/uL Basophils # (0-0.2) k/uL PT 10.9 (9.0-12.0) sec INR 1.0 (<1.2) APTT 23.2 (22.0-30.0) sec D-Dimer 0.42 (<0.60) mg/L FEU Sodium 134 L (137-145) mmol/L Potassium 4.5 (3.5-5.1) mmol/L Chloride 100 (98-107) mmol/L Carbon Dioxide 19 L (22-30) mmol/L Anion Gap 15 mmol/L BUN 31 H (9-20) mg/dL Creatinine 1.26 H (0.66-1.25) mg/dL Est GFR (CKD-EPI)AfAm 77 (>60 ml/min/1.73 sqM) Est GFR (CKD-EPI)NonAf 67 (>60 ml/min/1.73 sqM) Glucose 232 H (74-99) mg/dL Plasma Lactic Acid Rafi 2.0 (0.7-2.0) mmol/L Calcium 9.6 (8.4-10.2) mg/dL Magnesium 1.4 L (1.6-2.3) mg/dL Total Bilirubin 0.9 (0.2-1.3) mg/dL AST 32 (17-59) U/L ALT 35 (4-49) U/L Alkaline Phosphatase 107 (38-126) U/L Lactate Dehydrogenase 569 (313-618) U/L C-Reactive Protein 0.9 (<1.0) mg/dL NT-Pro-B Natriuret Pep pg/mL Total Protein 7.8 (6.3-8.2) g/dL Albumin 4.4 (3.5-5.0) g/dL Coronavirus (PCR) (Not Detectd) - EKG Data -: EKG Interpreted by Me (EKG sinus rhythm 63 ID [id number] QRS 88 QTc 417) - Radiology Data Radiology results: report reviewed (Chest x-ray and CT chest negative for acute disease), image reviewed Disposition Clinical Impression: Dyspnea, Chest pain, atypical, Tachycardia Disposition: ADMITTED IP TO THIS HOSP Condition: Good Instructions (If sedation given, give patient instructions): Bronchospasm (ED) Is patient prescribed a controlled substance at d/c from ED?: No Referrals: [facility],Clinic [Primary Care Provider] - 1-2 days
[2021-03-27] MEDS: SODIUM CHLORIDE 0.9% 1,000 ML IV SCH (23:32)
[2021-03-28 00:03] LABS: Albumin 4.4 g/dL (3.5-5.0); C Reactive Protein 0.9 mg/dL (<1.0); Calcium 9.6 mg/dL (8.4-10.2); Magnesium 1.4 mg/dL (1.6-2.3); Potassium 4.5 mmol/L (3.5-5.1); Total Bilirubin 0.9 mg/dL (0.2-1.3); Total Protein 7.8 g/dL (6.3-8.2)
[2021-03-28 00:16] LABS: Basophils # (A) 0.1 k/uL (0-0.2); Basophils % (A) 1 %; Eosinophils # (A) 0.2 k/uL (0-0.7); Eosinophils % (A) 2 %; HCT 51.9 % (39.0-53.0); HGB 17.4 gm/dL (13.0-17.5); Lymphocytes # (A) 2.7 k/uL (1.0-4.8); Lymphocytes % (A) 19 %; MCH 30.8 pg (25.0-35.0); MCHC 33.6 g/dL (31.0-37.0); MCV 91.8 fL (80.0-100.0); Mean Platelet Volume 7.5; Monocytes # (A) 0.9 k/uL (0-1.0); Monocytes % (A) 6 %; Neutrophils # (A) 9.9 k/uL (1.3-7.7); Neutrophils % (A) 70 %; Platelet Count 253 k/uL (150-450); RBC 5.66 m/uL (4.30-5.90); WBC 14.1 k/uL (3.8-10.6)
--- NOTE | 2021-03-28 00:16 | XR ---
EXAMINATION TYPE: XR chest 1V portable DATE OF EXAM: 03/27/2021 COMPARISON: 12/29/2018 HISTORY: Short of breath TECHNIQUE: Single view FINDINGS: There is no heart failure nor confluent pneumonic infiltrate. Costophrenic angles are clear . Heart and mediastinum appear normal. Bony thorax is intact. IMPRESSION: No active cardiopulmonary disease. No change.
[2021-03-28 00:20] LABS: Partial Thromboplastin Time 23.2 sec (22.0-30.0); Prothrombin Time 10.9 sec (9.0-12.0)
[2021-03-28] MEDS ORDERED: IPRATROPIUM-ALBUTEROL 3 ML NEB INHALATION STA (00:56)
--- NOTE | 2021-03-28 01:37 | CT ---
EXAMINATION TYPE: CT angio chest DATE OF EXAM: 03/28/2021 COMPARISON: None HISTORY: pe CT DLP: 1105.4 mGycm Automated exposure control for dose reduction was used. CONTRAST: Performed with IV Contrast, patient injected with 80 mL of Isovue 370. There are Three-D postprocessed images. The lungs are clear of consolidation. There is patchy atelectasis at the lung bases. There is no pleu ral effusion. Heart size is normal. There is no pericardial effusion. There is mild elevation of the right diaphragm. There is no mediastinal adenopathy. There are no hilar masses. Thoracic spine is intact. Sternum is intact. There is minor spur formation in the thoracic spine. There is normal contrast opacification of the pulmonary arteries. There are no filling defects. Thora cic aorta is intact. There is no aneurysm or dissection. IMPRESSION: No evidence of pulmonary embolism. Mild patchy atelectasis at the lung bases. No suspicious pulmonary mass.
[2021-03-28] MEDS ORDERED: LORazepam 2 MG/ML INJ IV STA (01:56)
[2021-03-28] MEDS ORDERED: NALOXONE 0.4 MG/ML 1 ML VIAL IV PRN (02:55)
[2021-03-28] MEDS ORDERED: LORazepam 2 MG/ML INJ IV PRN (02:55)
[2021-03-28] MEDS ORDERED: MORPHINE SULFATE 4 MG/ML SYRINGE IV PRN (02:55)
[2021-03-28] MEDS ORDERED: ONDANSETRON 4 MG/2 ML VIAL IVP PRN (02:55)
[2021-03-28] MEDS: SODIUM CHLORIDE 0.9% 1,000 ML IV SCH ×4 (08:19→09:18)
[2021-03-28 08:24] LABS: Glucose,Whole Blood 427 mg/dL (75-99)
[2021-03-28] MEDS ORDERED: SERTRALINE 100 MG TAB PO SCH (09:00)
[2021-03-28] MEDS ORDERED: GLIMEPIRIDE 2 MG TAB PO SCH (09:00)
[2021-03-28] MEDS: INSULIN ASPART (NovoLOG) 100 UNIT/ML VIAL SQ SCH ×2 (09:00→12:28)
[2021-03-28] MEDS ORDERED: CHOLECALCIFEROL 125 MCG (5000 IU) TABLET PO SCH (09:00)
[2021-03-28] MEDS ORDERED: PIOGLITAZONE 15 MG TAB PO SCH (09:00)
[2021-03-28] MEDS ORDERED: HEPARIN SODIUM,PORCINE/PF 5,000 UNIT/0.5 ML SYRINGE SQ SCH (09:15)
[2021-03-28] MEDS ORDERED: FAMOTIDINE 20 MG/2 ML VIAL IV SCH (09:15)
--- NOTE | 2021-03-28 10:01 | P.CRDCN ---
History of Present Illness Consult date: 03/28/21 Reason for Consult (text): tachycardia History of present illness: HISTORY OF PRESENT ILLNESS This is a 50-year-old male with past medical history of diabetes mellitus type 2, hyperlipidemia, active tobacco use and dependence. 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 Echocardiogram at that time revealed EF greater than 55%, mild mitral regurgitation, no pulmonary hypertension. Patient was seen by Dr. HUGH Rivera at that time but has not had follow-up. Patient gives history of developing vomiting last Tuesday in the afternoon this eventually stopped and by the he was having diarrhea until the middle of the day yesterday which both vomiting and diarrhea have resolved. He denies having any abdominal pain. He denies any blood or tarriness and vomit or stool. Yesterday he had sudden onset of difficulty catching his breath. He denies having any fever, chills, lightheadedness, dizziness, palpitations. He c/o cough. He did have some mild chest discomfort that has resolved. Yesterday he also had a COVID19 test done at [facility] which will take 3 days to result. He is a smoker of one pack per day for 35 years. He uses edible marijuana. No alcohol use or illicit drug use. He is adopted and does not know his family medical history. We've been asked to see the patient for tachycardia. Patient initially presented by EMS for shortness of breathpatient was on high flow nasal cannula at 15 L with pulse ox of 100%, initial blood pressure 153/103, heart rate was in the 130s in the emergency center now in the 90s and low 100s. He is now on nasal cannula 3 Lwith pulse ox of 98%. EKG initially sinus rhythm, second EKG sinus rhythmwith mild tachycardia at 107 bpm, no arrthymia. Chest x-ray reveals no acute cardio pulmonary disease. CTA of the chest showed no evidence of pulmonary embolism. Mild patchy atelectasis at the lung bases. No suspicious pulmonary mass. Laboratory studies: WBC 14.1, hemoglobin 17.4. D-dimer 0.42.Sodium 134, potassium 4.5, chloride 100, CO2 19, BUN 31 and creatinine 1.26. Blood sugar 232. Lactic acid 2. Troponins negative on 2 draws. Liver function tests were normal. LDH 569. Coronavirus PCR not detected. Cardiac medications include Lipitor 20 mg daily only. Echocardiogram reveals EF of 55-60%, trace mitral regurgitation, trace tricuspid regurgitation. REVIEW OF SYSTEMS At time of evaluation: Constitutional: No fever, no chills. No weakness, fatigue or lethargy. EENT: No headache. No dizziness. Lungs: No shortness of breath, cough, no sputum production. No wheezing. Cardiovascular: No chest pain, no lower extremity edema. No palpitations. No paroxysmal nocturnal dyspnea. No orthopnea. No lightheadedness or dizziness. No syncopal episodes. Abdominal: No abdominal pain. No nausea, vomiting. No diarrhea. No constipation. No bloody or tarry stools.. No loss of appetite. Genitourinary: No dysuria.. No urinary retention. Musculoskeletal: No myalgias. No muscle weakness, no gait dysfunction, no frequent falls. No back pain. No neck pain. Integumentary: No wounds, no lesions. No rash or pruritus. No unusual bruising. Neurologic: No aphasia. No facial droop. No change in mentation. No head injury. No headache. No paralysis. No paresthesia. Psychiatric: No depression. No anxiety. Endocrine: No abnormal blood sugars. PHYSICAL EXAMINATION Gen: This is a 50-year-old morbidly obese male, resting in bed and appears to be comfortable and in no acute distress. VS: blood pressure 118/78, afebrile, heart rate in the 90s, pulse ox 90% on 3 L. HEENT: Head is atraumatic, normocephalic. Pupils equal, round. Sclerae is anicteric. NECK: Supple. No JVD. No lymphadenopathy. No thyromegaly. LUNGS: Clear to auscultation. No wheezes or rhonchi. No intercostal re tractions. HEART: Regular rate and rhythm. No murmur. ABDOMEN: Soft. Bowel sounds are present. No masses. No tenderness. EXTREMITIES: No pedal edema. No calf tenderness. Dorsalis pedis +2 bilaterally NEUROLOGICAL: Patient is awake, alert and oriented x3. Cranial nerves 2 through 12 are grossly intact. ASSESSMENT Sinus tachycardia, resolved, possibility related to dehydration from vomiting and diarrhea and/or dyspnea Dyspnea of unclear etiology, PE ruled out Hyperlipidemia Hypertensive on presentation, resolved PLAN Cleared for discharge from Cardiology, follow-up in the office for further outpatient evaluation and workup Thank you kindly for this consultation. Nurse practitioner note has been reviewed, I agree with documented findings and plan of care. Patient was seen and examined. Past Medical History Past Medical History: Diabetes Mellitus History of Any Multi-Drug Resistant Organisms: None Reported Past Surgical History: Ear Surgery Additional Past Surgical History / Comment(s): lumpectomy in left breast, LEft wrist gangrenous cyst removed, abdominal abscess sepsis Past Anesthesia/Blood Transfusion Reactions: No Reported Reaction Past Psychological History: Depression Smoking Status: Current every day smoker Past Alcohol Use History: Rare Additional Past Alcohol Use History / Comment(s): smokes 1 pack a day. Past Drug Use History: Marijuana - Past Family History Father History Unknown: Yes Mother History Unknown: Yes Medications and Allergies Home Medications Medication Instructions Recorded Confirmed Type Insulin Glargine [Lantus Vial] 70 unit SQ HS 03/04/17 03/28/21 History metFORMIN HCL [Glucophage] 500 mg PO BID 03/04/17 03/28/21 History INSULIN ASPART (NovoLOG) [NovoLOG See Protocol SQ AC-TID 12/29/18 03/28/21 History (formulary)] Sertraline [Zoloft] 100 mg PO DAILY 12/29/18 03/28/21 History Atorvastatin [Lipitor] 20 mg PO HS 03/28/21 03/28/21 History Cholecalciferol [Vitamin D3 (125 250 mcg PO DAILY 03/28/21 03/28/21 History Mcg = 5000 Iu)] Glimepiride [Amaryl] 2 mg PO DAILY 03/28/21 03/28/21 History Pioglitazone [Actos] 15 mg PO DAILY 03/28/21 03/28/21 History traZODone HCL 100 mg PO HS 03/28/21 03/28/21 History Allergies Allergy/AdvReac Type Severity Reaction Status Date / Time No Known Allergies Allergy Verified 03/28/21 07:44 Physical Exam Vitals: Vital Signs Temp Pulse Pulse Resp BP BP Pulse Ox 03/28/21 08:05 98 03/28/21 07:00 97.7 F 95 14 118/78 98 03/28/21 06:56 98.7 F 92 18 134/89 100 03/28/21 03:01 107 H 18 117/72 97 03/28/21 02:17 70 03/28/21 02:07 80 18 161/86 100 03/28/21 01:55 70 03/28/21 01:38 61 18 153/95 100 03/28/21 00:04 71 18 146/98 100 03/27/21 23:04 74 18 151/110 100 03/27/21 22:57 98.1 F 76 18 153/103 100 Intake and Output 03/27/21 03/28/21 03/28/21 22:59 06:59 14:59 Other: Voiding Method Toilet Weight 131.542 kg 131.542 kg Results 03/27/21 23:20 03/27/21 23:20 Cardiac Enzymes 03/27/21 03/28/21 03/28/21 Range/Units 23:20 03:38 05:51 AST 32 (17-59) U/L Lactate Dehydrogenase 569 (313-618) U/L Troponin I <0.012 <0.012 (0.000-0.034) ng/mL Coagulation 03/27/21 Range/Units 23:20 PT 10.9 (9.0-12.0) sec APTT 23.2 (22.0-30.0) sec CBC 03/27/21 Range/Units 23:20 WBC 14.1 H (3.8-10.6) k/uL RBC 5.66 (4.30-5.90) m/uL Hgb 17.4 (13.0-17.5) gm/dL Hct 51.9 (39.0-53.0) % Plt Count 253 (150-450) k/uL Comprehensive Metabolic Panel 03/27/21 Range/Units 23:20 Sodium 134 L (137-145) mmol/L Potassium 4.5 (3.5-5.1) mmol/L Chloride 100 (98-107) mmol/L Carbon Dioxide 19 L (22-30) mmol/L BUN 31 H (9-20) mg/dL Creatinine 1.26 H (0.66-1.25) mg/dL Glucose 232 H (74-99) mg/dL Calcium 9.6 (8.4-10.2) mg/dL AST 32 (17-59) U/L ALT 35 (4-49) U/L Alkaline Phosphatase 107 (38-126) U/L Total Protein 7.8 (6.3-8.2) g/dL Albumin 4.4 (3.5-5.0) g/dL Current Medications Generic Name Dose Route Start Last Admin Trade Name Freq PRN Reason Stop Dose Admin Atorvastatin Calcium 20 mg 03/28/21 21:00 Atorvastatin 20 Mg Tab PO HS [facility] Cholecalciferol 250 mcg 03/28/21 09:00 Cholecalciferol 125 Mcg (5000 Iu) Tablet PO DAILY [facility] Famotidine 20 mg 03/28/21 09:15 Famotidine 20 Mg/2 Ml Vial IV Q12HR [facility] Glimepiride 2 mg 03/28/21 09:00 Glimepiride 2 Mg Tab PO DAILY [facility] Heparin Sodium (Porcine) 5,000 unit 03/28/21 09:15 Heparin Sodium,Porcine/Pf 5,000 Unit/0.5 Ml Syringe SQ Q12HR [facility] Sodium Chloride 1,000 mls @ 130 mls/hr 03/27/21 23:15 03/28/21 08:19 Saline 0.9% IV Not Given .Q7H42M [facility] Sodium Chloride 1,000 mls @ 130 mls/hr 03/28/21 03:00 03/28/21 08:19 Saline 0.9% IV Not Given .Q7H42M [facility] Insulin Aspart 0 unit 03/28/21 12:30 03/28/21 09:00 Insulin Aspart (Novolog) 100 Unit/Ml Vial SQ 12 unit ACHS [facility] Administration Protocol Insulin Detemir 70 unit 03/28/21 21:00 Insulin Detemir (Levemir) 100 Unit/Ml Syr SQ HS [facility] Lorazepam 0.5 mg 03/28/21 02:55 Lorazepam 2 Mg/Ml Inj IV Q6HR PRN Anxiety Morphine Sulfate 4 mg 03/28/21 02:55 Morphine Sulfate 4 Mg/Ml Syringe IV Q4HR PRN Severe Pain Naloxone HCl 0.2 mg 03/28/21 02:55 Naloxone 0.4 Mg/Ml 1 Ml Vial IV Q2M PRN Opioid Reversal Ondansetron HCl 4 mg 03/28/21 02:55 Ondansetron 4 Mg/2 Ml Vial IVP Q8HR PRN Nausea And Vomiting Pioglitazone HCl 15 mg 03/28/21 09:00 Pioglitazone 15 Mg Tab PO DAILY [facility] Sertraline HCl 100 mg 03/28/21 09:00 Sertraline 100 Mg Tab PO DAILY [facility] Trazodone HCl 100 mg 03/28/21 21:00 Trazodone Hcl 100 Mg Tab PO [facility] Intake and Output 03/27/21 03/28/21 03/28/21 22:59 06:59 14:59 Other: Voiding Method Toilet Weight 131.542 kg 131.542 kg 03/27/21 23:20 03/27/21 23:20
--- NOTE | 2021-03-28 10:53 | ECHOF ---
Referral Reason:tachy MEASUREMENTS -------- HEIGHT: 180.3 cm WEIGHT: 131.5 kg BP: RVIDd: 2.7 cm (< 3.3) IVSd: 1.5 cm (0.6 - 1.1) LVIDd: 3.3 cm (3.9 - 5.3) LVPWd: 1.6 cm (0.6 - 1.1) IVSs: 2.2 cm LVIDs: 2.1 cm LVPWs: 1.9 cm Ao Diam: 3.3 cm (2.0 - 3.7) AV Cusp: 2.0 cm (1.5 - 2.6) LA Diam: 3.8 cm (2.7 - 3.8) MV EXCURSION: 11.106 mm (> 18.000) MV EF SLOPE: 29 mm/s (70 - 150) EPSS: 0.4 cm MV E Delvin: 0.71 m/s MV DecT: 212 ms MV A Delvin: 0.63 m/s MV E/A Ratio: 1.12 RAP: 5.00 mmHg RVSP: 11.86 mmHg FINDINGS -------- This was a technically difficult study with suboptimal views. The left ventricular size is normal. There is moderate concentric left ventricular hypertrophy. O verall left ventricular systolic function is normal with, an EF between 55 - 60 %. The right ventricle is normal in size. The left atrial size is normal. The right atrial size is normal. xx ml of Lumason was utilized for enhancement of images. The aortic valve is trileaflet and appears structurally normal. The mitral valve is normal. There is trace mitral regurgitation. The tricuspid valve appears structurally normal. Trace tricuspid regurgitation present. Right ying tricular systolic pressure is normal at < 35 mmHg. There is no pulmonic regurgitation present. The aortic root size is normal. IVC Not well visulized. There is no pericardial effusion. CONCLUSIONS -------- 1. The left ventricular size is normal. 2. There is moderate concentric left ventricular hypertrophy. 3. Overall left ventricular systolic function is normal with, an EF between 55 - 60 %. 4. There is trace mitral regurgitation. 5. Trace tricuspid regurgitation present. 6. There is no pericardial effusion. [employer] ELECTRIFICATION ENGINEER: Carissa Lemus RDCS
[2021-03-28 11:48] LABS: Glucose,Whole Blood 340 mg/dL (75-99)
[2021-03-28] MEDS ORDERED: MAGNESIUM SULFATE-D5W PMX 1 GM in DEXTROSE/WATER 1 100ML.BAG IVPB ONE (12:30)
[2021-03-28 13:41] VITALS: BP 134/76; PULSE 81; RESP 18; TEMP 99.2
--- NOTE | 2021-03-28 15:03 | P.HPIM ---
History of Present Illness H&P Date: 03/28/21 Chief Complaint: Difficulty breathing 50-year-old male, history of diabetes mellitus type 2, hyperlipidemia, active tobacco use and dependence. Patient presented to ED yesterday after he had sudden onset of difficulty catching his breath. He denies having any fever, chills, lightheadedness, dizziness, palpitations. He c/o cough. He did have some mild chest discomfort that has resolved. Yesterday he also had a COVID19 test done at [facility] which will take 3 days to result. He is a smoker of one pack per day for 35 years. He uses edible marijuana. No alcohol use or illicit drug use. He is adopted and does not know his family medical history. In the ED patient was found to be tachycardic and was admitted for further cardiology evaluation Patient initially presented by EMS for shortness of breathpatient was on high flow nasal cannula at 15 L with pulse ox of 100%, initial blood pressure 153/103, heart rate was in the 130s in the emergency center EKG initially sinus rhythm, second EKG sinus rhythm with mild tachycardia at 107 bpm, no arrthymia. Chest x-ray reveals no acute cardio pulmonary disease. CTA of the chest showed no evidence of pulmonary embolism. Mild patchy atelectasis at the lung bases. No suspicious pulmonary mass. Laboratory studies: WBC 14.1, hemoglobin 17.4. D-dimer 0.42.Sodium 134, potassium 4.5, chloride 100, CO2 19, BUN 31 and creatinine 1.26. Blood sugar 232. Lactic acid 2. Troponins negative on 2 draws. Liver function tests were normal. LDH 569. Coronavirus PCR not detected. Review of Systems REVIEW OF SYSTEMS: CONSTITUTIONAL: No fever, no malaise, no fatigue. HEENT: No recent visual problems or hearing problems. Denied any sore throat. CARDIOVASCULAR: Complaints of chest pain, orthopnea, PND, no palpitations, no syncope. PULMONARY: No shortness of breath, no cough, no hemoptysis. GASTROINTESTINAL: No diarrhea, no nausea, no vomiting, no abdominal pain. NEUROLOGICAL: No headaches, no weakness, no numbness. HEMATOLOGICAL: Denies any bleeding or petechiae. GENITOURINARY: Denies any burning micturition, frequency, or urgency. MUSCULOSKELETAL/RHEUMATOLOGICAL: Denies any joint pain, swelling, or any muscle pain. ENDOCRINE: Denies any polyuria or polydipsia. The rest of the 14-point review of systems is negative. Past Medical History Past Medical History: Diabetes Mellitus History of Any Multi-Drug Resistant Organisms: None Reported Past Surgical History: Ear Surgery Additional Past Surgical History / Comment(s): lumpectomy in left breast, LEft wrist gangrenous cyst removed, abdominal abscess sepsis Past Anesthesia/Blood Transfusion Reactions: No Reported Reaction Past Psychological History: Depression Smoking Status: Current every day smoker Past Alcohol Use History: Rare Additional Past Alcohol Use History / Comment(s): smokes 1 pack a day. Past Drug Use History: Marijuana - Past Family History Father History Unknown: Yes Mother History Unknown: Yes Medications and Allergies Home Medications Medication Instructions Recorded Confirmed Type Insulin Glargine [Lantus Vial] 70 unit SQ HS 03/04/17 03/28/21 History metFORMIN HCL [Glucophage] 500 mg PO BID 03/04/17 03/28/21 History INSULIN ASPART (NovoLOG) [NovoLOG See Protocol SQ AC-TID 12/29/18 03/28/21 History (formulary)] Sertraline [Zoloft] 100 mg PO DAILY 12/29/18 03/28/21 History Atorvastatin [Lipitor] 20 mg PO HS 03/28/21 03/28/21 History Cholecalciferol [Vitamin D3 (125 250 mcg PO DAILY 03/28/21 03/28/21 History Mcg = 5000 Iu)] Glimepiride [Amaryl] 2 mg PO DAILY 03/28/21 03/28/21 History Pioglitazone [Actos] 15 mg PO DAILY 03/28/21 03/28/21 History traZODone HCL 100 mg PO HS 03/28/21 03/28/21 History Allergies Allergy/AdvReac Type Severity Reaction Status Date / Time No Known Allergies Allergy Verified 03/28/21 07:44 Physical Exam Vitals: Vital Signs Temp Pulse Pulse Resp BP BP Pulse Ox 03/28/21 08:05 98 03/28/21 07:00 97.7 F 95 14 118/78 98 03/28/21 06:56 98.7 F 92 18 134/89 100 03/28/21 03:01 107 H 18 117/72 97 03/28/21 02:17 70 03/28/21 02:07 80 18 161/86 100 03/28/21 01:55 70 03/28/21 01:38 61 18 153/95 100 03/28/21 00:04 71 18 146/98 100 03/27/21 23:04 74 18 151/110 100 03/27/21 22:57 98.1 F 76 18 153/103 100 Intake and Output 03/27/21 03/28/21 03/28/21 22:59 06:59 14:59 Other: Voiding Method Toilet Weight 131.542 kg 131.542 kg PHYSICAL EXAMINATION: GENERAL: The patient is alert and oriented x3, not in any acute distress. Well developed, well nourished. HEENT: Pupils are round and equally reacting to light. EOMI. No scleral icterus. No conjunctival pallor. Normocephalic, atraumatic. No pharyngeal erythema. No thyromegaly. CARDIOVASCULAR: S1 and S2 present. No murmurs, rubs, or gallops. PULMONARY: Chest is clear to auscultation, no wheezing or crackles. ABDOMEN: Soft, nontender, nondistended, normoactive bowel sounds. No palpable organomegaly. MUSCULOSKELETAL: No joint swelling or deformity. EXTREMITIES: No cyanosis, clubbing, or pedal edema. NEUROLOGICAL: Gross neurological examination did not reveal any focal deficits. SKIN: No rashes. Results CBC & Chem 7: 03/27/21 23:20 03/27/21 23:20 Labs: Abnormal Lab Results - Last 24 Hours (Table) 03/27/21 03/27/21 03/28/21 Range/Units 23:20 23:20 08:22 WBC 14.1 H (3.8-10.6) k/uL Neutrophils # 9.9 H (1.3-7.7) k/uL Sodium 134 L (137-145) mmol/L Carbon Dioxide 19 L (22-30) mmol/L BUN 31 H (9-20) mg/dL Creatinine 1.26 H (0.66-1.25) mg/dL Glucose 232 H (74-99) mg/dL POC Glucose (mg/dL) 427 H (75-99) mg/dL Magnesium 1.4 L (1.6-2.3) mg/dL Thrombosis Risk Factor Assmnt - Choose All That Apply Each Factor Represents 1 point: Age 41-60 years Thrombosis Risk Factor Assessment Total Risk Factor Score: 1 Thrombosis Risk Factor Assessment Level: Low Risk Assessment and Plan Assessment: 1. Sinus tachycardia with chest pressure - Patient is planned to be admitted to telemetry with close monitoring of EKG and trend troponin - 2-D echo for left ventricular function; consult cardiology for further recommendations 2. Uncontrolled hypertension; currently not on any antihypertensive therapy; blood pressure is stable since admission; we will monitor closely 3. Hyperlipidemia; Lipitor 20 mg by mouth daily at bedtime 4. Dyspnea on initial presentation; CT of the chest is negative for PE; patient is currently saturating around 97% on room air 5. Diabetes mellitus/marked hyperglycemia; controlled with insulin; we will continue with home dose of Lantus at 70 units subcu daily at bedtime, Actos 15 mg daily, metformin 500 mg twice a day and Amaryl 2 mg daily; monitor Accu-Cheks every before meals and at bedtime with insulin sliding scale 6. Depression; Zoloft 100 mg daily along with trazodone 100 mg by mouth daily at bedtime DVT prophylaxis; SCDs/subcu heparin CODE STATUS; full code
[2021-03-28] MEDS ORDERED: traZODone HCL 100 MG TAB PO SCH (21:00)
[2021-03-28] MEDS ORDERED: INSULIN DETEMIR (LEVEMIR) 100 UNIT/ML SYR SQ SCH (21:00)
[2021-03-28] MEDS ORDERED: ATORVASTATIN 20 MG TAB PO SCH (21:00)
[2021-03-29] MEDS ORDERED: FAMOTIDINE 20 MG TAB PO SCH (09:00)
== END 2021-03-28 16:07 | disposition home or self-care (01) ==
LOC: EC 22:52 → 6NMEDSUR 03-28 02:55
PROVIDERS: ADMIT Hospitalist; ATTEND Hospitalist
DX: R07.89 Other chest pain (principal); R00.0 Tachycardia, unspecified; R06.00 Dyspnea, unspecified; E78.5 Hyperlipidemia, unspecified; I51.7 Cardiomegaly; E11.65 Type 2 diabetes mellitus with hyperglycemia; I10 Essential (primary) hypertension; J98.11 Atelectasis; F41.9 Anxiety disorder, unspecified; F32.A Depression, unspecified; F17.210 Nicotine dependence, cigarettes, uncomplicated; E66.01 Morbid (severe) obesity due to excess calories; Z68.41 Body mass index [BMI] 40.0-44.9, adult; Z20.822 Contact with and (suspected) exposure to COVID-19; Z79.4 Long term (current) use of insulin; Z79.84 Long term (current) use of oral hypoglycemic drugs; Z79.899 Other long term (current) drug therapy; Z87.2 Personal history of diseases of the skin and subcutaneous tissue; Z98.890 Other specified postprocedural states; Z86.19 Personal history of other infectious and parasitic diseases
CPT/HCPCS: 96361 ×3; 96365; 96366; 96372; 96375 ×2; 96376; 99285; 36415; 94640; 93005; 93306; 85379; 83880; 80053; 82728; 83605; 83615; 83735; 84484; 85025; 85610; 85730; 86140; 87040; 83036; 84145; 87635; 71045; 71275; G0378; J2060 ×2; J2270; J3475; J1885; Q9950; Q9967; J1644

== ENCOUNTER 2021-10-23 09:27 | Observation (INO) | payer BC ==
--- NOTE | 2021-10-23 09:39 | ED ---
General Adult HPI - General Chief complaint: Nausea/Vomiting/Diarrhea Stated complaint: vomiting Time Seen by Provider: 10/23/21 09:27 Source: patient, RN notes reviewed, old records reviewed Mode of arrival: ambulatory Limitations: no limitations - History of Present Illness Initial comments: This is a 51-year-old male who presents emergency Department complaining that he has been vomiting anything he eats or drinks since Tuesday. Patient states he d oesn't eat or drink he doesn't vomit. Patient states he has just some abdominal soreness from vomiting but he has got no abdominal pain. Patient denies any fever chills patient denies any chest pain difficulty breathing shortness of breath. Patient states his CBC drinks or eats anything he vomits within a half an hour. - Related Data Home Medications Medication Instructions Recorded Confirmed Insulin Glargine [Lantus Vial] 60 unit SQ HS 03/04/17 06/23/21 metFORMIN HCL [Glucophage] 1,000 mg PO BID 03/04/17 06/23/21 INSULIN ASPART (NovoLOG) [NovoLOG See Protocol SQ AC-TID 12/29/18 06/23/21 (formulary)] Atorvastatin [Lipitor] 20 mg PO HS 03/28/21 06/23/21 Glimepiride [Amaryl] 2 mg PO DAILY 03/28/21 06/23/21 Pioglitazone [Actos] 15 mg PO DAILY 03/28/21 06/23/21 Cholecalciferol [Vitamin D3 (25 100 mcg PO DAILY 06/23/21 06/23/21 Mcg = 1000 Iu)] Previous Rx's Medication Instructions Recorded Sertraline [Zoloft] 150 mg PO DAILY 30 Days tab 06/26/21 traZODone HCL [Desyrel] 150 mg PO HS 30 Days tab 06/26/21 Allergies Allergy/AdvReac Type Severity Reaction Status Date / Time No Known Allergies Allergy Verified 10/23/21 09:32 Review of Systems ROS Statement: Those systems with pertinent positive or pertinent negative responses have been documented in the HPI. ROS Other: All systems not noted in ROS Statement are negative. Past Medical History Past Medical History: Asthma, Diabetes Mellitus History of Any Multi-Drug Resistant Organisms: None Reported Past Surgical History: Ear Surgery Additional Past Surgical History / Comment(s): lumpectomy in left breast, LEft wrist gangrenous cyst removed, abdominal abscess sepsis Past Anesthesia/Blood Transfusion Reactions: No Reported Reaction Past Psychological History: Depression Smoking Status: Current every day smoker Past Alcohol Use History: Rare Past Drug Use History: Marijuana - Past Family History Father History Unknown: Yes Mother History Unknown: Yes General Exam - General Exam Comments Initial Comments: GENERAL: Patient is well-developed and well-nourished. Patient is nontoxic and well- hydrated and is in mild distress. ENT: Neck is soft and supple. No significant lymphadenopathy is noted. Oropharynx is clear. Moist mucous membranes. EYES: The sclera were anicteric and conjunctiva were pink and moist. Extraocular m ovements were intact and pupils were equal round and reactive to light. Eyelids were unremarkable. PULMONARY: Unlabored respirations. Good breath sounds bilaterally. No audible rales rhonchi or wheezing was noted. CARDIOVASCULAR: There is a regular rate and rhythm without any murmurs gallops or rubs. ABDOMEN: Soft and nontender with normal bowel sounds. SKIN: Skin is clear with no lesions or rashes and otherwise unremarkable. NEUROLOGIC: Patient is alert and oriented x3. Cranial nerves II through XII are grossly intact. Motor and sensory are also intact. Normal speech, volume and content. Symmetrical smile. MUSCULOSKELETAL: Normal extremities with adequate strength and full range of motion. LYMPHATICS: No significant lymphadenopathy is noted PSYCHIATRIC: Patient is mildly anxious Limitations: no limitations Course Vital Signs 10/23/21 09:29 Temperature 98.2 F Pulse Rate 79 Respiratory 18 Rate Blood Pressure 134/87 O2 Sat by Pulse 97 Oximetry Medical Decision Making - Medical Decision Making EKG shows sinus rhythm at 74 bpm [place] interval is on a 52 QRS is 84 QT interval 388 QTC is 4:15. Patient's EKG shows no ST segment elevation or depression. Ultrasound was a poor study because of gas but they did not see any obvious stones or dilatation. I spoke with Dr. Alba Willis came down and saw the patient and the patient will be staying in getting an endoscopy. - Lab Data Result diagrams: 10/23/21 10:39 10/23/21 10:39 Lab Results 10/23/21 10/23/21 Range/Units 10:39 10:39 WBC 17.7 H (3.8-10.6) k/uL RBC 5.60 (4.30-5.90) m/uL Hgb 16.4 (13.0-17.5) gm/dL Hct 49.1 (39.0-53.0) % MCV 87.7 (80.0-100.0) fL MCH 29.4 (25.0-35.0) pg MCHC 33.5 (31.0-37.0) g/dL RDW 12.3 (11.5-15.5) % Plt Count 257 (150-450) k/uL MPV 7.0 Neutrophils % 86 % Lymphocytes % 9 % Monocytes % 4 % Eosinophils % 0 % Basophils % 0 % Neutrophils # 15.1 H (1.3-7.7) k/uL Lymphocytes # 1.7 (1.0-4.8) k/uL Monocytes # 0.7 (0-1.0) k/uL Eosinophils # 0.0 (0-0.7) k/uL Basophils # 0.1 (0-0.2) k/uL Sodium 136 L (137-145) mmol/L Potassium 3.9 (3.5-5.1) mmol/L Chloride 102 (98-107) mmol/L Carbon Dioxide 26 (22-30) mmol/L Anion Gap 8 mmol/L BUN 22 H (9-20) mg/dL Creatinine 0.92 (0.66-1.25) mg/dL Est GFR (CKD-EPI)AfAm >90 (>60 ml/min/1.73 sqM) Est GFR (CKD-EPI)NonAf >90 (>60 ml/min/1.73 sqM) Glucose 274 H (74-99) mg/dL Calcium 9.1 (8.4-10.2) mg/dL Total Bilirubin 0.5 (0.2-1.3) mg/dL AST 24 (17-59) U/L ALT 27 (4-49) U/L Alkaline Phosphatase 101 (38-126) U/L Total Protein 7.3 (6.3-8.2) g/dL Albumin 4.1 (3.5-5.0) g/dL Amylase 137 H (30-110) U/L Lipase 741 H (23-300) U/L Disposition Clinical Impression: Pancreatitis, Dysphagia Disposition: ADMITTED IP TO THIS [facility] Referrals: Nonstaff,Physician [Primary Care Provider] - 1-2 days Time of Disposition: 11:52
[2021-10-23] MEDS ORDERED: SODIUM CHLORIDE 0.9% 500 ML 500 ML IV ONE (09:59)
[2021-10-23 10:48] LABS: Basophils # (A) 0.1 k/uL (0-0.2); Basophils % (A) 0 %; Eosinophils % (A) 0 %; HCT 49.1 % (39.0-53.0); HGB 16.4 gm/dL (13.0-17.5); Lymphocytes # (A) 1.7 k/uL (1.0-4.8); Lymphocytes % (A) 9 %; MCH 29.4 pg (25.0-35.0); MCHC 33.5 g/dL (31.0-37.0); MCV 87.7 fL (80.0-100.0); Monocytes # (A) 0.7 k/uL (0-1.0); Monocytes % (A) 4 %; Neutrophils # (A) 15.1 k/uL (1.3-7.7); Neutrophils % (A) 86 %; Platelet Count 257 k/uL (150-450); RDW 12.3 % (11.5-15.5); WBC 17.7 k/uL (3.8-10.6)
[2021-10-23 11:03] LABS: ALT 27 U/L (4-49); AST 24 U/L (17-59); African American GFR (CKD) >90 (>60 ml/min/1.73 sqM); Albumin 4.1 g/dL (3.5-5.0); Alkaline Phosphatase 101 U/L (38-126); Amylase 137 U/L (30-110); Anion Gap 8 mmol/L; Blood Urea Nitrogen 22 mg/dL (9-20); Calcium 9.1 mg/dL (8.4-10.2); Carbon Dioxide 26 mmol/L (22-30); Chloride 102 mmol/L (98-107); Glucose 274 mg/dL (74-99); Lipase 741 U/L (23-300); Non-African American GFR(CKD) >90 (>60 ml/min/1.73 sqM); Potassium 3.9 mmol/L (3.5-5.1); Sodium 136 mmol/L (137-145); Total Bilirubin 0.5 mg/dL (0.2-1.3); Total Protein 7.3 g/dL (6.3-8.2)
[2021-10-23] MEDS ORDERED: ONDANSETRON 4 MG/2 ML VIAL IVP PRN (11:37)
[2021-10-23] MEDS ORDERED: PANTOPRAZOLE 40 MG/10 ML VIAL IVP SCH (11:45)
--- NOTE | 2021-10-23 11:48 | P.CONS ---
History of Present Illness - Reason for Consult Consult date: 10/23/21 Nausea vomiting, dysphagia Requesting physician: Frank Moreno - Chief Complaint Nausea/vomiting - History of Present Illness This is a pleasant 51-year-old male with past medical history including diabetes mellitus, asthma and obesity who came into the emergency department with concerns of nausea and vomiting since Tuesday. Patient states he woke up queasy on Tuesday and since then he has had nausea vomiting and some diarrhea. States no significant fever, chills, or other sick contacts. He said that he was monitoring his temperature max temp at home was 99.5. He denies remembering feeling as though he ate something had some stuck in his throat. However he is complaining of epigastric discomfort as well as feeling that there is something stuck in his throat. He states that he will get water down and about 30 minutes later it seems to come back up. He tried macaroni noodles yesterday states that as he was eating and felt like it just gets stuck and came back up. States he has been he'll keep some protein drinks down. Denies any history of peptic ul cer disease, acid reflux, or previous EGD. Patient was noted to have elevated amylase and lipase. He denies any history of pancreatitis. Denies any alcohol use or abuse in the past. Denies any gallbladder disease. And no new medications. Labs: WBC 17.7 hemoglobin 16.4, platelet count 257,000, sodium 136 potassium 3.9 BUN 22 creatinine 0.92 total bilirubin 0.5 AST 24 ALT 27 alk phos 101 amylase 137 lipase 741 Review of Systems REVIEW OF SYSTEMS: CARDIOPULMONARY: No chest pain or shortness of breath. Gastrointestinal: Epigastric discomfort, feeling of sensation of something stuck in his throat. Feeling like he is being strangled.. Nausea with vomiting es pecially after eating or drinking. No hematemesis, coffee-ground emesis. No rectal bleeding, or melena. GENITOURINARY: No dysuria or hematuria. MUSCULOSKELETAL: Reports normal range of motion., Joint pain. SKIN: No rashes. No jaundice. ENDOCRINE: No chills, fevers. No excessive weight gain or loss. No polydipsia or polyuria. PSYCHIATRIC: Unremarkable. NEUROLOGY: No change in mental status. Denies dizziness, headache. ENT: Vision unremarkable. CONSTITUTIONAL: No recent weight loss. No fever, chills, night sweats. Past Medical History Past Medical History: Asthma, Diabetes Mellitus History of Any Multi-Drug Resistant Organisms: None Reported Past Surgical History: Ear Surgery Additional Past Surgical History / Comment(s): lumpectomy in left breast, LEft wrist gangrenous cyst removed, abdominal abscess sepsis Past Anesthesia/Blood Transfusion Reactions: No Reported Reaction Past Psychological History: Depression Smoking Status: Current every day smoker Past Alcohol Use History: Rare Past Drug Use History: Marijuana - Past Family History Father History Unknown: Yes Mother History Unknown: Yes Medications and Allergies Home Medications Medication Instructions Recorded Confirmed Type Insulin Glargine [Lantus Vial] 15 unit SQ HS 03/04/17 10/23/21 History INSULIN ASPART (NovoLOG) [NovoLOG See Protocol SQ AC-TID 12/29/18 10/23/21 History (formulary)] Atorvastatin [Lipitor] 20 mg PO HS 03/28/21 10/23/21 History Cholecalciferol [Vitamin D3 (25 50 mcg PO DAILY 06/23/21 10/23/21 History Mcg = 1000 Iu)] Empagliflozin [Jardiance] 10 mg PO DAILY 10/23/21 10/23/21 History Fluticasone Propion/Salmeterol 1 puff INHALATION RT-BID 10/23/21 10/23/21 History [Advair 500-50 Diskus] Insulin Glargine [Lantus Vial] 25 unit SQ DAILY 10/23/21 10/23/21 History Ipratropium/Albuter 20-100Mcg 1 puff INHALATION RT-QID 10/23/21 10/23/21 History [Combivent Respimat 20-100Mcg Inhaler] Sertraline [Zoloft] 200 mg PO DAILY 10/23/21 10/23/21 History Testosterone [Axiron] 3 pump TOPICAL DIRECTED 10/23/21 10/23/21 History risperiDONE 1 mg PO BID 10/23/21 10/23/21 History traZODone HCL [Desyrel] 200 mg PO HS 10/23/21 10/23/21 History Allergies Allergy/AdvReac Type Severity Reaction Status Date / Time No Known Allergies Allergy Verified 10/23/21 09:32 Physical Exam Vitals: Vital Signs Temp Pulse Resp BP Pulse Ox 10/23/21 09:29 98.2 F 79 18 134/87 97 Intake and Output 10/22/21 10/23/21 10/23/21 22:59 06:59 14:59 Other: Weight 136.078 kg OnGeneral appearance: The patient is alert, oriented, appears in no acute distress. Obese. HET: Head is normocephalic and atraumatic. Conjunctiva pink. Sclera anicteric. Neck: Supple without lymphadenopathy. Trachea midline. Heart: S1 S2. Regular rate and rhythm. Lungs: Clear to auscultation. Abdomen: Soft, epigastric tenderness, nondistended with bowel sounds. No guarding or rigidity. Skin: No rashes. No jaundice. Extremities: Normal skin color and turgor. No pedal edema. Neurological: No focal deficits. Alert and oriented x3. Results CBC & Chem 7: 10/23/21 10:39 10/23/21 10:39 Labs: Abnormal Lab Results - Last 24 Hours (Table) 10/23/21 10/23/21 Range/Units 10:39 10:39 WBC 17.7 H (3.8-10.6) k/uL Neutrophils # 15.1 H (1.3-7.7) k/uL Sodium 136 L (137-145) mmol/L BUN 22 H (9-20) mg/dL Glucose 274 H (74-99) mg/dL Amylase 137 H (30-110) U/L Lipase 741 H (23-300) U/L Assessment and Plan (1) Dysphagia Narrative/Plan: 51-year-old male who presented to the emergency department with nausea and vomiting since Tuesday. Patient states he continues to have some nausea and vomiting however only happens after he is eating or drinking. States he will drink water and it stays down for about half an hour and then he vomits it back up. States yesterday tried eating some macaroni got some down but then fdc through felt as though it was stuck in his throat and he vomited it back up. De nies any previous history of peptic ulcer disease, no prior EGD. Does not recall eating anything and feeling as if it immediately was stuck. No other sick contacts. Possible viral enteritis/gastritis, patient also with elevated amylase and lipase, may be dealing with underlying pancreatitis. However, need to consider possible etiology of foreign body, peptic ulcer disease. Will proceed with EGD this afternoon. Current Visit: Yes Status: Acute Code(s): R13.10 - DYSPHAGIA, UNSPECIFIED SNOMED Code(s): 36371894 (2) Nausea and vomiting Current Visit: Yes Status: Acute Code(s): R11.2 - NAUSEA WITH VOMITING, UNSPECIFIED SNOMED Code(s): 11130953 (3) Pancreatitis Narrative/Plan: Patient with mild elevation in amylase and lipase. No previous history of pancreatitis, denies any alcohol use. No new medications. Agree with abdominal ultrasound. Need to consider possibility of gallstone pancreatitis, however LFTs are all normal. Current Visit: Yes Status: Acute Code(s): K85.90 - ACUTE PANCREATITIS WITHOUT NECROSIS OR INFECTION, UNSP SNOMED Code(s): 51905462 (4) Morbid obesity with BMI of 40.0-44.9, adult Current Visit: No Status: Acute Code(s): E66.01 - MORBID (SEVERE) OBESITY DUE TO EXCESS CALORIES; Z68.41 - BODY MASS INDEX [BMI] 40.0-44.9, ADULT SNOMED Code(s): 020641051 (5) Type 2 diabetes mellitus Current Visit: No Status: Acute Code(s): E11.9 - TYPE 2 DIABETES MELLITUS WITHOUT COMPLICATIONS SNOMED Code(s): 49218139 Plan: 1. Continue symptomatic and supportive care 2. Keep nothing by mouth 3. Please consent for EGD with possible foreign body removal 4. Protonix 40 mg daily 5. Agree with abdominal ultrasound 6. Will proceed with EGD this afternoon Thank you for this consultation. Thank you for allowing us to participate in the care of the patient, the GI service will sign off, gastroenterology will not be available at the hospital this weekend and through next week. If further evaluation by gastroenterology is required the patient will need transfer as per the primary team's discretion. Dr. David Willis I agree with the dictator's note, documented as a scribe by Monica Rivera.
[2021-10-23] MEDS ORDERED: SODIUM CHLORIDE 0.9% 1,000 ML IV ONE (11:53)
[2021-10-23] MEDS ORDERED: DEXTROSE 50% SYRINGE 50 ML IVP PRN ×2 (13:22)
[2021-10-23] MEDS ORDERED: LIDOCAINE 2% INJ 20 MG/ML (2 ML VIAL) ONE (13:49)
[2021-10-23] MEDS ORDERED: PROPOFOL 10 MG/ML 20 ML VIAL IV ONE (13:49)
[2021-10-23] MEDS ORDERED: IV FLUID CONTINUATION 1,000 ML IV ONE (14:01)
--- NOTE | 2021-10-23 14:03 | P.PCN ---
Date of Procedure: 10/23/21 Procedure(s) Performed: BRIEF HISTORY: Patient is a 51-year-old, pleasant, white male scheduled for an upper endoscopy as a part of evaluation of nausea vomiting for the last 1 week duration. He does complain of some vague epigastric discomfort and severe heartburn. In the emergency room because of the above symptoms and was also noted to have mild elevation of lipase of 700. He scheduled for an upper endoscopy to evaluate further. PROCEDURE PERFORMED: Esophagogastroduodenoscopy with biopsy PREOPERATIVE DIAGNOSIS: Nausea vomiting of one week duration. IV sedation per anesthesia. PROCEDURE: After informed consent was obtained, the patient was brought into the endoscopy unit. IV sedation was administered by Anesthesia under continuous monitoring. Initially the Olympus GIF-140 video endoscope was inserted into the mouth. Esophagus intubated without any difficulty. It was gradually advanced into the stomach and duodenum and carefully examined. The bulb had mild duodenitis and the second part of the duodenum appeared normal. The scope at this time was withdrawn to the stomach, adequately insufflated with air, and upon careful examination, mucosa of the antrum, body, had diffuse gastritis and biopsies were done from this area. The cardia and the fundus appeared normal. The scope was then withdrawn into the esophagus. The GE junction was located at 45 cm from the incisors. There was a short segment of Cerna's esophagus extending 5-6 m proximal to the GE junction which was biopsied. The rest of the esophagus appeared normal. There were no erosions or ulcerations seen and the patient tolerated the procedure well. IMPRESSION: 1. Mild diffuse gastritis and duodenitis. 2. 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 No evidence of esophageal stricture or gastric outlet obstruction. RECOMMENDATIONS: The findings of this examination were discussed with the patient . He will be started on a clear liquid diet and I couldn't be advanced as tolerated. Continue with Protonix 40 mg twice daily..
--- NOTE | 2021-10-23 14:12 | P.HPIM ---
History of Present Illness H&P Date: 10/23/21 History of Presenting Illness: Patient is a very pleasant 51-year-old male with a past medical history of COPD with continued nicotine dependence, insulin-dependent diabetes mellitus, hyperlipidemia, depression, anxiety, and cannabis use. He presented to the emergency department with a chief complaint of nausea and vomiting beginning Tuesday and has been having some mild epigastric discomfort/feeling of "being extremely gassy, but can't burp" and feels as though he has something stuck in his throat. He denies any recent fevers, chills, diaphoresis, headache, lightheadedness, dizziness, chest pain or palpitations, shortness of breath, cough or congestion, hematemesis, melena, or hematochezia. Patient does report having a couple episodes of diarrhea over the past few days. Patient underwent full evaluation in the emergency department. He was found to have leukocytosis with WBC count of 17.7 and acute pancreatitis with lipase of 741 and amylase of 137. He was admitted under our services with consultation to gastroenterology. Review of systems: Pertinent positives and negatives as discussed in HPI, a complete review of systems was performed and all other systems are negative. Physical exam: Vital signs reviewed and stable. General: Nontoxic, no distress and appears stated age. Derm: Skin warm and dry, normal coloration for ethnicity. Head: Atraumatic, normocephalic and symmetric. Eyes: EOMs intact, no lid lag, and anicteric sclera Mouth: no lip lesions, mucus membranes moist Cardiovascular: regular rate and rhythm with normal S1S2, systolic murmur, positive posterior tibial pulses bilaterally, and cap refill < 2 seconds. Lungs: Respirations even, regular, and unlabored on room air. Lungs CTA bilaterally, no rhonchi, no rales, no wheezing, and no accessory muscle usage. Abdominal: Obese abdomen soft, slight tenderness upon palpation to mid epigastric region, no guarding, no appreciable organomegaly Ext: ROM intact. No gross muscle atrophy, no edema, no contractures Neuro: Speech clear, face symmetrical and CN II-XII grossly intact with no noted focal neuro deficits Psych: Alert and oriented to person, place, time, and situation. Appropriate and pleasant affect. Assessment and Plan of Care: Acute pancreatitis Intractable nausea and vomiting -GI consulted, taking patient for EGD this afternoon -Continue IV fluid hydration with 0.9% normal saline at 125 mL per hour. -Nothing by mouth until diet is advanced by gastroenterology. -Antiemetics with Zofran as needed for nausea and/or vomiting -Pain management with morphine as needed COPD with continued nicotine dependence -Continue daily medication regimen with Advair, Combivent, and when necessary DuoNeb's as needed for shortness of breath and/or wheezing. -Recommend smoking cessation. -Nicotine patch. Insulin-dependent diabetes mellitus -Patient placed on glycemic protocol with NovoLog sliding scale and to continue Levemir 25 units daily and 15 units nightly. Hyperlipidemia -Continue daily medication regimen with atorvastatin 20 mg nightly. Depression and anxiety -Continue daily medication regimen with trazodone, sertraline, and risperidone. Cannabis use -Recommend cessation of cannabis use. Intractable nausea and vomiting possibly secondary to cannabinoid hyperemesis syndrome. The patient is admitted with an anticipated left than 2 midnight stay for evaluation of acute pancreatitis and intractable nausea and vomiting CODE STATUS: Full code DVT prophylaxis: Heparin Discussed with: Patient, gastroenterology, and RN Anticipated discharge date: Tomorrow morning Anticipated discharge place: Home A total of 45 minutes was spent on the care of this complex patient more than 50% of the time was spent in counseling and care coordination. I reviewed the documentation as provided by the MATTEO above, who is the original author of this note. I agree with the documented assessment and plan, with the following changes: none Past Medical History Past Medical History: Asthma, Diabetes Mellitus History of Any Multi-Drug Resistant Organisms: None Reported Past Surgical History: Ear Surgery Additional Past Surgical History / Comment(s): lumpectomy in left breast, LEft wrist gangrenous cyst removed, abdominal abscess sepsis Past Anesthesia/Blood Transfusion Reactions: No Reported Reaction Past Psychological History: Depression Smoking Status: Current every day smoker Past Alcohol Use History: Rare Past Drug Use History: Marijuana - Past Family History Father History Unknown: Yes Mother History Unknown: Yes Medications and Allergies Home Medications Medication Instructions Recorded Confirmed Type Insulin Glargine [Lantus Vial] 15 unit SQ HS 03/04/17 10/23/21 History INSULIN ASPART (NovoLOG) [NovoLOG See Protocol SQ AC-TID 12/29/18 10/23/21 History (formulary)] Atorvastatin [Lipitor] 20 mg PO HS 03/28/21 10/23/21 History Cholecalciferol [Vitamin D3 (25 50 mcg PO DAILY 06/23/21 10/23/21 History Mcg = 1000 Iu)] Empagliflozin [Jardiance] 10 mg PO DAILY 10/23/21 10/23/21 History Fluticasone Propion/Salmeterol 1 puff INHALATION RT-BID 10/23/21 10/23/21 History [Advair 500-50 Diskus] Insulin Glargine [Lantus Vial] 25 unit SQ DAILY 10/23/21 10/23/21 History Ipratropium/Albuter 20-100Mcg 1 puff INHALATION RT-QID 10/23/21 10/23/21 History [Combivent Respimat 20-100Mcg Inhaler] Pantoprazole [Protonix] 40 mg PO BID #60 tab 10/23/21 Rx Sertraline [Zoloft] 200 mg PO DAILY 10/23/21 10/23/21 History Testosterone [Axiron] 3 pump TOPICAL DIRECTED 10/23/21 10/23/21 History risperiDONE 1 mg PO BID 10/23/21 10/23/21 History traZODone HCL [Desyrel] 200 mg PO HS 10/23/21 10/23/21 History Allergies Allergy/AdvReac Type Severity Reaction Status Date / Time No Known Allergies Allergy Verified 10/23/21 09:32 Physical Exam Osteopathic Statement: *. No significant issues noted on an osteopathic structural exam other than those noted in the History and Physical/Consult. Vitals: Vital Signs Temp Pulse Resp BP Pulse Ox 10/23/21 12:35 91 18 125/83 97 10/23/21 09:29 98.2 F 79 18 134/87 97 Intake and Output 10/22/21 10/23/21 10/23/21 22:59 06:59 14:59 Other: Weight 136.078 kg Results CBC & Chem 7: 10/23/21 10:39 10/23/21 10:39 Labs: Abnormal Lab Results - Last 24 Hours (Table) 10/23/21 10/23/21 Range/Units 10:39 10:39 WBC 17.7 H (3.8-10.6) k/uL Neutrophils # 15.1 H (1.3-7.7) k/uL Sodium 136 L (137-145) mmol/L BUN 22 H (9-20) mg/dL Glucose 274 H (74-99) mg/dL Amylase 137 H (30-110) U/L Lipase 741 H (23-300) U/L Thrombosis Risk Factor Assmnt - Choose All That Apply Each Factor Represents 1 point: Age 41-60 years Thrombosis Risk Factor Assessment Total Risk Factor Score: 1 Thrombosis Risk Factor Assessment Level: Low Risk
[2021-10-23 14:41] LABS: Glucose,Whole Blood 183 mg/dL (70-110)
[2021-10-23] MEDS ORDERED: ACETAMINOPHEN TAB 325 MG TAB PO PRN (14:54)
[2021-10-23] MEDS ORDERED: MAG HYDROX/AL HYDROX/SIMETH 30 ML, HYOSCYAMINE ELIXIR 10 ML, LIDOCAINE VISCOUS 2% 10 ML PO ONE ×3 (14:54)
[2021-10-23] MEDS ORDERED: MORPHINE SULFATE 4 MG/ML SYRINGE IV PRN (14:58)
--- NOTE | 2021-10-23 15:42 | US ---
EXAMINATION TYPE: US gallbladder DATE OF EXAM: 10/23/2021 COMPARISON: NONE CLINICAL HISTORY: Gallbladder right upper quadrant pain. TECHNIQUE: Multiple sonographic images of the right upper quadrant are obtained. FINDINGS: EXAM MEASUREMENTS: Liver Length: 13.3 cm Gallbladder Wall: 0.2 cm CBD: 0.7 cm, measurement is of questionable accuracy Right Kidney: 12.4 x 5.5 x5.2 cm BACK TENDER PULP DRIER NOTES: Morbidly obese patient, technically difficult limited study. Pancreas: Obscured by bowel gas Liver: Increased attenuation, decreased visualization of vessels suggestive of fatty infiltrate Gallbladder: wnl as seen, not well visualized due to overlying bowel gas Evidence for sonographic Maki's sign: no CBD: wnl, limited views Right Kidney: wnl as seen Visualized portion of the inferior vena cava is normal. IMPRESSION: Exam is limited by patient body habitus. There may be underlying hepatic steatosis, liver size may be enlarged, measurement may be under business representative. Common bile duct measurement may be increased
[2021-10-23] MEDS: NICOTINE 21MG/24HR PATCH TRANSDERM SCH (15:56)
[2021-10-23] MEDS: HEPARIN SODIUM,PORCINE/PF 5,000 UNIT/0.5 ML SYRINGE SQ SCH ×2 (15:56→23:25)
[2021-10-23 17:23] LABS: Glucose,Whole Blood 186 mg/dL (70-110)
[2021-10-23] MEDS: INSULIN ASPART (NovoLOG) 100 UNIT/ML VIAL SQ SCH ×2 (17:34→21:31)
[2021-10-23] MEDS: IPRATROPIUM-ALBUTEROL 3 ML NEB INHALATION SCH ×2 (19:46→19:57)
[2021-10-23] MEDS: SYMBICORT 160-4.5 MCG INHALER INHALATION SCH (19:57)
[2021-10-23] MEDS: ATORVASTATIN 20 MG TAB PO SCH (20:27)
[2021-10-23] MEDS: risperiDONE 1 MG TAB PO SCH (20:27)
[2021-10-23] MEDS: PANTOPRAZOLE 40 MG/10 ML VIAL IVP SCH (20:29)
[2021-10-23 20:51] LABS: Glucose,Whole Blood 174 mg/dL (70-110)
[2021-10-23] MEDS: INSULIN DETEMIR (LEVEMIR) 100 UNIT/ML SYR SQ SCH (21:31)
[2021-10-23] MEDS: traZODone HCL 100 MG TAB PO SCH (22:14)
[2021-10-24 07:07] LABS: Glucose,Whole Blood 144 mg/dL (70-110)
[2021-10-24] MEDS: NICOTINE 21MG/24HR PATCH TRANSDERM SCH (07:20)
[2021-10-24] MEDS: INSULIN DETEMIR (LEVEMIR) 100 UNIT/ML SYR SQ SCH ×2 (07:20→22:18)
[2021-10-24] MEDS: SERTRALINE 100 MG TAB PO SCH (07:20)
[2021-10-24] MEDS: risperiDONE 1 MG TAB PO SCH ×2 (07:21→22:02)
[2021-10-24] MEDS: PANTOPRAZOLE 40 MG/10 ML VIAL IVP SCH ×2 (07:21→22:04)
[2021-10-24] MEDS: HEPARIN SODIUM,PORCINE/PF 5,000 UNIT/0.5 ML SYRINGE SQ SCH ×3 (07:21→22:18)
[2021-10-24] MEDS: CHOLECALCIFEROL 25 MCG (1000 IU) TABLET PO SCH (07:21)
[2021-10-24] MEDS: INSULIN ASPART (NovoLOG) 100 UNIT/ML VIAL SQ SCH ×4 (07:27→22:03)
[2021-10-24] MEDS: IPRATROPIUM-ALBUTEROL 3 ML NEB INHALATION SCH ×4 (08:03→20:01)
[2021-10-24] MEDS: SYMBICORT 160-4.5 MCG INHALER INHALATION SCH ×2 (08:03→20:01)
[2021-10-24 08:46] LABS: HCT 46.7 % (39.6-50.0); HGB 15.2 g/dL (13.0-17.0); MCHC 32.5 g/dL (32.0-37.0); Mean Platelet Volume 9.3 fL (9.5-12.2); NRBC Per 100 WBC 0 /100 WBCS (0.0-0.0); Platelet Count 232 X 10*3/uL (140-440); RBC 5.25 X 10*6/uL (4.40-5.60); RDW 12.6 % (11.5-14.5); WBC 8.05 X 10*3/uL (4.50-10.00)
[2021-10-24 08:54] LABS: Albumin 3.7 g/dL (3.8-4.9); Albumin/Globulin Ratio 1.48 (1.60-3.17); BUN/Creat Ratio 15.5 Ratio (12.00-20.00); Blood Urea Nitrogen 15.5 mg/dL (9.0-27.0); Globulin 2.5 g/dL (1.6-3.3); Magnesium 2.3 mg/dL (1.5-2.4); Potassium 4.6 mmol/L (3.5-5.5); Total Bilirubin 0.6 mg/dL (0.30-1.20); Total Protein 6.2 g/dL (6.2-8.2)
[2021-10-24 11:40] LABS: Glucose,Whole Blood 196 mg/dL (70-110)
--- NOTE | 2021-10-24 11:51 | P.PN ---
Subjective Progress Note Date: 10/24/21 Subjective: Patient seen and examined. States he feels much better. He had a clear liquid diet breakfast this morning I was able to keep everything down. His last episode of emesis was yesterday. Denies any chest pain, shortness of breath or abdominal pain. No bowel movements. Physical exam: Vital signs reviewed and stable. General: Nontoxic, no distress and appears stated age. Derm: Skin warm and dry, normal coloration for ethnicity. Head: Atraumatic, normocephalic and symmetric. Eyes: EOMs intact, no lid lag, and anicteric sclera Mouth: no lip lesions, mucus membranes moist Cardiovascular: regular rate and rhythm with normal S1S2, systolic murmur, positive posterior tibial pulses bilaterally, and cap refill < 2 seconds. Lungs: Respirations even, regular, and unlabored on room air. Lungs CTA bilaterally, no rhonchi, no rales, no wheezing, and no accessory muscle usage. Abdominal: Obese abdomen soft, slight tenderness upon palpation to mid epigastric region, no guarding, no appreciable organomegaly Ext: ROM intact. No gross muscle atrophy, no edema, no contractures Psych: Alert and oriented to person, place, time, and situation. Appropriate and pleasant affect. Assessment and Plan of Care: Intractable nausea and vomiting -GI performed -gastritis -DC IV fluids -Advance diet to low fiber low-fat GI soft diet -Antiemetics with Zofran as needed for nausea and/or vomiting -Pain management with morphine as needed -If patient tolerated his diet well plan for discharge in 24 hours. COPD with continued nicotine dependence -Continue daily medication regimen with Advair, Combivent, and when necessary DuoNeb's as needed for shortness of breath and/or wheezing. -Recommend smoking cessation. -Nicotine patch. Insulin-dependent diabetes mellitus -Patient placed on glycemic protocol with NovoLog sliding scale and to continue Levemir 25 units daily and 15 units nightly. Hyperlipidemia -Continue daily medication regimen with atorvastatin 20 mg nightly. Depression and anxiety -Continue daily medication regimen with trazodone, sertraline, and risperidone. Cannabis use -Recommend cessation of cannabis use. Intractable nausea and vomiting possibly secondary to cannabinoid hyperemesis syndrome. Objective - Vital Signs Vital signs: Vital Signs Temp 97.8 F 10/24/21 07:00 Pulse 76 10/24/21 11:23 Resp 18 10/24/21 07:00 BP 119/78 10/24/21 07:00 Pulse Ox 97 10/24/21 07:00 FiO2 Intake & Output 10/23/21 10/24/21 10/24/21 18:59 06:59 18:59 Intake Total 118 1500 Balance 118 1500 Weight 136.078 kg Intake: Intake, IV Titration 1000 Amount IV Fluid Continuation 1, 1000 000 ml @ 0 mls/hr IV .[facility] -[facility] Rx#:[id number] Oral 118 500 Other: Voiding Method Toilet Toilet # Voids 1 1 - Labs CBC & Chem 7: 10/24/21 06:27 10/24/21 06:27 Labs: Abnormal Lab Results - Last 24 Hours (Table) 10/23/21 10/23/21 10/23/21 Range/Units 10:39 14:39 17:22 MPV (9.5-12.2) fL Carbon Dioxide (20.0-27.5) mmol/L Anion Gap (10.00-18.00) mmol/L Glucose (70-110) mg/dL POC Glucose (mg/dL) 183 H 186 H (70-110) mg/dL Hemoglobin A1c 8.2 H (0.0-6.0) % Albumin (3.8-4.9) g/dL Albumin/Globulin Ratio (1.60-3.17) g/dL 10/23/21 10/24/21 10/24/21 Range/Units 20:49 06:27 06:27 MPV 9.3 L (9.5-12.2) fL Carbon Dioxide 32.0 H (20.0-27.5) mmol/L Anion Gap 5.00 L (10.00-18.00) mmol/L Glucose 157 H (70-110) mg/dL POC Glucose (mg/dL) 174 H (70-110) mg/dL Hemoglobin A1c (0.0-6.0) % Albumin 3.7 L (3.8-4.9) g/dL Albumin/Globulin Ratio 1.48 L (1.60-3.17) g/dL 10/24/21 10/24/21 Range/Units 06:50 11:38 MPV (9.5-12.2) fL Carbon Dioxide (20.0-27.5) mmol/L Anion Gap (10.00-18.00) mmol/L Glucose (70-110) mg/dL POC Glucose (mg/dL) 144 H 196 H (70-110) mg/dL Hemoglobin A1c (0.0-6.0) % Albumin (3.8-4.9) g/dL Albumin/Globulin Ratio (1.60-3.17) g/dL
[2021-10-24 17:45] LABS: Glucose,Whole Blood 159 mg/dL (70-110)
[2021-10-24 21:18] LABS: Glucose,Whole Blood 188 mg/dL (70-110)
[2021-10-24] MEDS: traZODone HCL 100 MG TAB PO SCH (22:02)
[2021-10-24] MEDS: ATORVASTATIN 20 MG TAB PO SCH (22:02)
[2021-10-25 01:19] VITALS: RESP 18
[2021-10-25] MEDS: NICOTINE 21MG/24HR PATCH TRANSDERM SCH (07:21)
[2021-10-25] MEDS: SERTRALINE 100 MG TAB PO SCH (07:21)
[2021-10-25] MEDS: INSULIN DETEMIR (LEVEMIR) 100 UNIT/ML SYR SQ SCH (07:21)
[2021-10-25] MEDS: CHOLECALCIFEROL 25 MCG (1000 IU) TABLET PO SCH (07:22)
[2021-10-25] MEDS: HEPARIN SODIUM,PORCINE/PF 5,000 UNIT/0.5 ML SYRINGE SQ SCH (07:22)
[2021-10-25] MEDS: risperiDONE 1 MG TAB PO SCH (07:22)
[2021-10-25] MEDS: PANTOPRAZOLE 40 MG/10 ML VIAL IVP SCH (07:22)
[2021-10-25] MEDS: INSULIN ASPART (NovoLOG) 100 UNIT/ML VIAL SQ SCH (07:23)
[2021-10-25 07:45] LABS: Glucose,Whole Blood 180 mg/dL (70-110)
[2021-10-25] MEDS: IPRATROPIUM-ALBUTEROL 3 ML NEB INHALATION SCH (08:45)
[2021-10-25] MEDS: SYMBICORT 160-4.5 MCG INHALER INHALATION SCH (08:45)
[2021-10-25 09:15] VITALS: BP 133/84; PULSE 75; TEMP 97.9
[2021-10-25 09:48] LABS: Basophils # (A) 0.07 X 10*3/uL (0.00-0.10); Basophils % (A) 0.7 %; Eosinophils # (A) 0.29 X 10*3/uL (0.04-0.35); Eosinophils % (A) 2.8 %; HGB 14.8 g/dL (13.0-17.0); Immature Grans, Automated 0.3 %; Lymphocytes # (A) 2.62 X 10*3/uL (0.90-5.00); Lymphocytes % (A) 25.7 %; MCH 28.6 pg (27.0-32.0); MCHC 31.5 g/dL (32.0-37.0); MCV 90.7 fL (80.0-97.0); Mean Platelet Volume 9.6 fL (9.5-12.2); Monocytes # (A) 0.66 X 10*3/uL (0.20-1.00); Monocytes % (A) 6.5 %; NRBC Per 100 WBC 0 /100 WBCS (0.0-0.0); Neutrophils # (A) 6.53 X 10*3/uL (1.80-7.70); Platelet Count 229 X 10*3/uL (140-440); RBC 5.18 X 10*6/uL (4.40-5.60); RDW 12.5 % (11.5-14.5)
[2021-10-25 09:52] LABS: African American GFR (CKD) 104.1 (60.0-200.0); Albumin 3.7 g/dL (3.8-4.9); Albumin/Globulin Ratio 1.54 (1.60-3.17); Anion Gap 8.4 mmol/L (10.00-18.00); BUN/Creat Ratio 16.17 Ratio (12.00-20.00); Blood Urea Nitrogen 15.9 mg/dL (9.0-27.0); Calcium 8.8 mg/dL (8.7-10.3); Carbon Dioxide 29.4 mmol/L (20.0-27.5); Globulin 2.4 g/dL (1.6-3.3); Non-African American GFR(CKD) 89.8 (60.0-200.0); Potassium 4.5 mmol/L (3.5-5.5); Total Bilirubin 0.3 mg/dL (0.30-1.20); Total Protein 6.1 g/dL (6.2-8.2)
--- NOTE | 2021-10-25 10:23 | P.DS ---
Providers Date of admission: 10/23/21 11:42 Expected date of discharge: 10/25/21 Attending physician: Misha Marroquin MD Consults: 10/23/21 11:53 Consult Physician Urgent Consulting Provider: Karyn Willis Consult Reason/Comments: Dysphagia, pancreatitis Do you want consulting provider notified?: Yes Primary care physician: Physician Nonstaff - Discharge Diagnosis(es) (1) Dysphagia Patient is a very pleasant 51-year-old male with a past medical history of COPD with continued nicotine dependence, insulin-dependent diabetes mellitus, hyperlipidemia, depression, anxiety, and cannabis use. He presented to the emergency department with a chief complaint of nausea and vomiting beginning Tuesday and has been having some mild epigastric discomfort/feeling of "being extremely gassy, but can't burp" and feels as though he has something stuck in his throat. He denies any recent fevers, chills, diaphoresis, headache, lightheadedness, dizziness, chest pain or palpitations, shortness of breath, cough or congestion, hematemesis, melena, or hematochezia. Patient does report having a couple episodes of diarrhea over the past few days. Patient underwent full evaluation in the emergency department. He was found to have leukocytosis with WBC count of 17.7 and acute pancreatitis with lipase of 741 and amylase of 137. He was admitted under our services with consultation to gastroenterology. During the hospitalization patient was seen by GI and had an EGD done which showed diffuse gastritis and duodenitis. He was started on pantoprazole 40 mg twice a day. Patient was feeling much better with that medication. He was able to tolerate GI soft diet for 3 meals and did not have any episodes of emesis or any abdominal discomfort. He was not requiring any antiemetics. Patient at the day of discharge was asymptomatic and is able to keep anything down and was ready for discharge. Had a discussion with patient about his diagnosis, prognosis, follow-up plan and patient verbalized understanding. Physical exam: General: Nontoxic, no distress and appears stated age. Derm: Skin warm and dry, normal coloration for ethnicity. Head: Atraumatic, normocephalic and symmetric. Eyes: EOMs intact, no lid lag, and anicteric sclera Mouth: no lip lesions, mucus membranes moist Cardiovascular: regular rate and rhythm with normal S1S2, systolic murmur Lungs: Respirations even, regular, and unlabored on room air. Lungs CTA bilaterally, no rhonchi, no rales, no wheezing, and no accessory muscle usage. Abdominal: Obese abdomen soft, no tenderness upon palpation, no guarding, no appreciable organomegaly Ext: ROM intact. No gross muscle atrophy, no edema, no contractures Psych: Alert and oriented to person, place, time, and situation. Appropriate and pleasant affect. Current Visit: Yes Status: Acute (2) Gastritis and duodenitis Current Visit: Yes Status: Acute (3) Nausea and vomiting Current Visit: Yes Status: Acute Patient Condition at Discharge: Good Plan - Discharge Summary Discharge Rx Participant: Yes New Discharge Prescriptions: New Pantoprazole [Protonix] 40 mg PO BID #60 tab No Action Insulin Glargine [Lantus Vial] 15 unit SQ HS INSULIN ASPART (NovoLOG) [NovoLOG (formulary)] See Protocol SQ AC-TID Sertraline [Zoloft] 200 mg PO DAILY Ipratropium/Albuter 20-100Mcg [Combivent Respimat 20-100Mcg Inhaler] 1 puff INHALATION RT-QID Fluticasone Propion/Salmeterol [Advair 500-50 Diskus] 1 puff INHALATION RT- BID traZODone HCL [Desyrel] 200 mg PO HS Insulin Glargine [Lantus Vial] 25 unit SQ DAILY Atorvastatin [Lipitor] 20 mg PO HS Cholecalciferol [Vitamin D3 (25 Mcg = 1000 Iu)] 50 mcg PO DAILY Empagliflozin [Jardiance] 10 mg PO DAILY risperiDONE 1 mg PO BID Testosterone [Axiron] 3 pump TOPICAL DIRECTED Discharge Medication List Insulin Glargine [Lantus Vial] 15 unit SQ HS 03/04/17 [History] INSULIN ASPART (NovoLOG) [NovoLOG (formulary)] See Protocol SQ AC-TID 12/29/18 [History] Atorvastatin [Lipitor] 20 mg PO HS 03/28/21 [History] Cholecalciferol [Vitamin D3 (25 Mcg = 1000 Iu)] 50 mcg PO DAILY 06/23/21 [History] Empagliflozin [Jardiance] 10 mg PO DAILY 10/23/21 [History] Fluticasone Propion/Salmeterol [Advair 500-50 Diskus] 1 puff INHALATION RT-BID 10/23/21 [History] Insulin Glargine [Lantus Vial] 25 unit SQ DAILY 10/23/21 [History] Ipratropium/Albuter 20-100Mcg [Combivent Respimat 20-100Mcg Inhaler] 1 puff INHALATION RT-QID 10/23/21 [History] Pantoprazole [Protonix] 40 mg PO BID #60 tab 10/23/21 [Rx] Sertraline [Zoloft] 200 mg PO DAILY 10/23/21 [History] Testosterone [Axiron] 3 pump TOPICAL DIRECTED 10/23/21 [History] risperiDONE 1 mg PO BID 10/23/21 [History] traZODone HCL [Desyrel] 200 mg PO HS 10/23/21 [History] Follow up Appointment(s)/Referral(s): Karyn Willis MD [STAFF PHYSICIAN] - 3 Weeks Nonstaff,Physician [Primary Care Provider] - 1-2 days Patient Instructions/Handouts: Low Fiber Diet (GEN) Discharge Disposition: HOME SELF-CARE
== END 2021-10-25 10:27 | disposition home or self-care (01) ==
LOC: EC 09:27 → 6NMEDSUR 11:42
PROVIDERS: ADMIT Family Medicine; ATTEND Family Medicine
DX: K85.90 Acute pancreatitis without necrosis or infection, unspecified (principal); K29.50 Unspecified chronic gastritis without bleeding; K31.A0 Gastric intestinal metaplasia, unspecified; K29.80 Duodenitis without bleeding; K22.70 Barrett's esophagus without dysplasia; D72.829 Elevated white blood cell count, unspecified; J44.9 Chronic obstructive pulmonary disease, unspecified; F17.200 Nicotine dependence, unspecified, uncomplicated; E11.9 Type 2 diabetes mellitus without complications; E78.5 Hyperlipidemia, unspecified; F32.A Depression, unspecified; F41.9 Anxiety disorder, unspecified; E66.01 Morbid (severe) obesity due to excess calories; Z68.41 Body mass index [BMI] 40.0-44.9, adult; Z98.890 Other specified postprocedural states; Z86.19 Personal history of other infectious and parasitic diseases; Z79.51 Long term (current) use of inhaled steroids; Z79.899 Other long term (current) drug therapy; Z79.4 Long term (current) use of insulin; Z79.84 Long term (current) use of oral hypoglycemic drugs
CPT/HCPCS: 96360; 99285; 36415; 94640 ×6; 88305; 80053 ×3; 82150; 83690 ×2; 83735; 85025 ×2; 85027; 83036; 76705; 43239; G0378 ×3; S4990 ×3; J2405; J2704; C9113 ×3; J1644 ×2; J2001

== ENCOUNTER 2023-10-01 13:49 | Inpatient (IN) | payer BC, OTHER ==
[2023-10-01] MEDS: METOCLOPRAMIDE 5 MG/ML 2 ML VIAL IVP STA ×2 (14:48→23:27)
[2023-10-01] MEDS: KETOROLAC 15 MG/ML 1 ML VIAL IVP STA (14:49)
[2023-10-01] MEDS: diphenhydrAMINE 50 MG/ML 1 ML VIAL IVP STA (14:49)
[2023-10-01] MEDS: SODIUM CHLORIDE 0.9% 2,000 ML IV STA (14:52)
[2023-10-01 15:13] LABS: Basophils # (A) 0.1 k/uL (0-0.2); Basophils % (A) 0 %; Eosinophils % (A) 0 %; HCT 53.1 % (39.0-53.0); HGB 17.4 gm/dL (13.0-17.5); Lymphocytes # (A) 0.9 k/uL (1.0-4.8); Lymphocytes % (A) 5 %; MCH 30.3 pg (25.0-35.0); MCHC 32.8 g/dL (31.0-37.0); MCV 92.4 fL (80.0-100.0); Monocytes # (A) 0.9 k/uL (0-1.0); Monocytes % (A) 5 %; Neutrophils # (A) 16.7 k/uL (1.3-7.7); Neutrophils % (A) 89 %; Platelet Count 295 k/uL (150-450); RBC 5.75 m/uL (4.30-5.90); RDW 12.5 % (11.5-15.5); WBC 18.7 k/uL (3.8-10.6)
[2023-10-01 15:22] LABS: ALT 23 U/L (4-49); African American GFR (CKD) >90 (>60 ml/min/1.73 sqM); Albumin 4.7 g/dL (3.5-5.0); Anion Gap 23 mmol/L; Blood Urea Nitrogen 35 mg/dL (9-20); Calcium 10.3 mg/dL (8.4-10.2); Carbon Dioxide 13 mmol/L (22-30); Chloride 100 mmol/L (98-107); Lipase 359 U/L (23-300); Non-African American GFR(CKD) 87 (>60 ml/min/1.73 sqM); Sodium 136 mmol/L (137-145); Total Protein 7.5 g/dL (6.3-8.2)
[2023-10-01 15:24] LABS: AST 24 U/L (17-59); Alkaline Phosphatase 114 U/L (38-126); Glucose 566 mg/dL (74-99); Potassium 4.7 mmol/L (3.5-5.1)
--- NOTE | 2023-10-01 15:48 | ED ---
Nausea/Vomiting/Diarrhea HPI - General Chief complaint: Nausea/Vomiting/Diarrhea Stated complaint: Weakness,vomiting Time Seen by Provider: 10/01/23 14:08 Source: patient, RN notes reviewed Mode of arrival: ambulatory Limitations: no limitations - History of Present Illness Initial comments: 53-year-old male presents emergency department chief complaint of nausea vomiting. Patient states that he has had increasing abdominal pain, nausea vomiting. Patient states symptoms started 3 days ago. Patient has epigastric upper abdominal pain he has had recent hospitalization for acute pancreatitis he is a known diabetic unsure what his current blood sugar is. Patient denies any upper chest pain, headache or dizziness currently no dysuria. - Related Data Home Medications Medication Instructions Recorded Confirmed Insulin Glargine [Lantus Vial] 15 unit SQ HS 03/04/17 10/23/21 INSULIN ASPART (NovoLOG) [NovoLOG See Protocol SQ AC-TID 12/29/18 10/23/21 (formulary)] Atorvastatin [Lipitor] 20 mg PO HS 03/28/21 10/23/21 Cholecalciferol [Vitamin D3 (25 50 mcg PO DAILY 06/23/21 10/23/21 Mcg = 1000 Iu)] Empagliflozin [Jardiance] 10 mg PO DAILY 10/23/21 10/23/21 Fluticasone Propion/Salmeterol 1 puff INHALATION RT-BID 10/23/21 10/23/21 [Advair 500-50 Diskus] Insulin Glargine [Lantus Vial] 25 unit SQ DAILY 10/23/21 10/23/21 Ipratropium/Albuter 20-100Mcg 1 puff INHALATION RT-QID 10/23/21 10/23/21 [Combivent Respimat 20-100Mcg Inhaler] Sertraline [Zoloft] 200 mg PO DAILY 10/23/21 10/23/21 Testosterone [Axiron] 3 pump TOPICAL DIRECTED 10/23/21 10/23/21 risperiDONE 1 mg PO BID 10/23/21 10/23/21 traZODone HCL [Desyrel] 200 mg PO HS 10/23/21 10/23/21 Previous Rx's Medication Instructions Recorded Pantoprazole [Protonix] 40 mg PO BID #60 tab 10/23/21 Allergies Allergy/AdvReac Type Severity Reaction Status Date / Time No Known Allergies Allergy Verified 10/01/23 14:06 Review of Systems ROS Statement: Those systems with pertinent positive or pertinent negative responses have been documented in the HPI. ROS Other: All systems not noted in ROS Statement are negative. Past Medical History Past Medical History: Asthma, Diabetes Mellitus History of Any Multi-Drug Resistant Organisms: None Reported Past Surgical History: Ear Surgery Additional Past Surgical History / Comment(s): lumpectomy in left breast, LEft wrist gangrenous cyst removed, abdominal abscess sepsis Past Anesthesia/Blood Transfusion Reactions: No Reported Reaction Past Psychological History: Depression Smoking Status: Current every day smoker Past Alcohol Use History: Rare Past Drug Use History: Marijuana - Past Family History Father History Unknown: Yes Mother History Unknown: Yes General Exam Limitations: no limitations General appearance: alert, in no apparent distress Head exam: Present: atraumatic, normocephalic, normal inspection Eye exam: Present: normal appearance, PERRL, EOMI. Absent: scleral icterus, conjunctival injection, periorbital swelling ENT exam: Present: normal exam, mucous membranes moist Neck exam: Present: normal inspection, full ROM. Absent: tenderness, meningismus, lymphadenopathy Respiratory exam: Present: normal lung sounds bilaterally. Absent: respiratory distress, wheezes, rales, rhonchi, stridor Cardiovascular Exam: Present: regular rate, normal rhythm, normal heart sounds. Absent: systolic murmur, diastolic murmur, rubs, gallop, clicks GI/Abdominal exam: Present: soft, tenderness, normal bowel sounds. Absent: distended, guarding, rebound, rigid Neurological exam: Present: alert, oriented X3, CN II-XII intact Skin exam: Present: warm, dry, intact, normal color. Absent: rash Course Vital Signs 10/01/23 14:03 Temperature 97.4 F L Pulse Rate 96 Respiratory 20 Rate Blood Pressure 142/91 Medical Decision Making - Medical Decision Making Was pt. sent in by a medical professional or institution (, PA, BRAKE SHOE REBUILDER, urgent care, hospital, or longterm...) When possible be specific @ -No Did you speak to anyone other than the patient for history (EMS, parent, family, police, friend...)? What history was obtained from this source @ -No Did you review nursing and triage notes (agree or disagree)? Why? @ -I reviewed and agree with nursing and triage notes Were old charts reviewed (outside hosp., previous admission, EMS record, old EKG, old radiological studies, urgent care reports/EKG's, longterm records)? Report findings @ -No old charts were reviewed Differential Diagnosis (chest pain, altered mental status, abdominal pain women, abdominal pain men, vaginal bleeding, weakness, fever, dyspnea, syncope, headache, dizziness, GI bleed, back pain, seizure, CVA, palpatations, mental health, musculoskeletal)? @ -Differential Abdominal Pain Men: Appendicitis, cholecystitis, diverticulosis, ischemic bowel, pancreatitis, hepatitis, UTI, gastroenteritis, AAA, incarcerated hernia, bowel obstruction, constipation, inflammatory bowel, hepatitis, peptic ulcer disease, splenic infarction, perforated viscus, testicular torsion, this is not meant to be an all-inclusive list EKG interpreted by me (3pts min.). @ -As above X-rays interpreted by me (1pt min.). @ -None done CT interpreted by me (1pt min.). @ -None done U/S interpreted by me (1pt. min.). @ -None done What testing was considered but not performed or refused? (CT, X-rays, U/S, labs)? Why? @ -None What meds were considered but not given or refused? Why? @ -None Did you discuss the management of the patient with other professionals (professionals i.e. , PA, BRAKE SHOE REBUILDER, lab, RT, psych nurse, rn social services, legal executive assistant, teacher, fire management officer, case management manager)? Give summary @ -[facility] physician for admission for DKA Was smoking cessation discussed for >3mins.? @ -No Was critical care preformed (if so, how long)? @ -No Were there social determinants of health that impacted care today? How? (Homelessness, low income, unemployed, alcoholism, drug addiction, transportation, low edu. Level, literacy, decrease access to med. care, fci, rehab)? @ -No Was there de-escalation of care discussed even if they declined (Discuss DNR or withdrawal of care, Hospice)? DNR status @ -No What co-morbidities impacted this encounter? (DM, HTN, Smoking, COPD, CAD, Cancer, CVA, ARF, Chemo, Hep., AIDS, mental health diagnosis, sleep apnea, morbid obesity)? @ -Diabetes Was patient admitted / discharged? Hospital course, mention meds given and route, prescriptions, significant lab abnormalities, going to OR and other pe rtinent info. @ -Admitted patient presented for nausea vomiting, dehydration. Patient found to be acutely acidotic CO2 13, glucose greater than 500 with acetone positive, 4+ ketones 4+ glucose. Patient was started on fluid bolus 2 L, maintenance fluids, insulin drip with bolus. Patient will recheck electrolytes every 4 hours. Undiagnosed new problem with uncertain prognosis? @ -No Drug Therapy requiring intensive monitoring for toxicity (Heparin, Nitro, Insulin, Cardizem)? @ -No Were any procedures done? @ -No Diagnosis/symptom? @ -DKA, metabolic acidosis nausea vomiting Acute, or Chronic, or Acute on Chronic? @ -Acute Uncomplicated (without systemic symptoms) or Complicated (systemic symptoms)? @ -Complicated Side effects of treatment? @ -No Exacerbation, Progression, or Severe Exacerbation? @ -No Poses a threat to life or bodily function? How? (Chest pain, [place], [place], pneumonia, PE, COPD, DKA, ARF, appy, cholecystitis, CVA, Diverticulitis, Homicidal, Suicidal, threat to staff... and all critical care pts) @ -Yes DKA - Lab Data Result diagrams: 10/01/23 14:41 10/01/23 14:41 Lab Results 10/01/23 10/01/23 10/01/23 Range/Units 14:41 14:41 14:41 WBC 18.7 H (3.8-10.6) k/uL RBC 5.75 (4.30-5.90) m/uL Hgb 17.4 (13.0-17.5) gm/dL Hct 53.1 H (39.0-53.0) % MCV 92.4 (80.0-100.0) fL MCH 30.3 (25.0-35.0) pg MCHC 32.8 (31.0-37.0) g/dL RDW 12.5 (11.5-15.5) % Plt Count 295 (150-450) k/uL MPV 8.0 Neutrophils % 89 % Lymphocytes % 5 % Monocytes % 5 % Eosinophils % 0 % Basophils % 0 % Neutrophils # 16.7 H (1.3-7.7) k/uL Lymphocytes # 0.9 L (1.0-4.8) k/uL Monocytes # 0.9 (0-1.0) k/uL Eosinophils # 0.0 (0-0.7) k/uL Basophils # 0.1 (0-0.2) k/uL Sodium 136 L (137-145) mmol/L Potassium 4.7 (3.5-5.1) mmol/L Chloride 100 (98-107) mmol/L Carbon Dioxide 13 L (22-30) mmol/L Anion Gap 23 mmol/L BUN 35 H (9-20) mg/dL Creatinine 1.00 (0.66-1.25) mg/dL Est GFR (CKD-EPI)AfAm >90 (>60 ml/min/1.73 sqM) Est GFR (CKD-EPI)NonAf 87 (>60 ml/min/1.73 sqM) Glucose 566 H* (74-99) mg/dL Plasma Lactic Acid Rafi (0.7-2.0) mmol/L Calcium 10.3 H (8.4-10.2) mg/dL Total Bilirubin 1.0 (0.2-1.3) mg/dL AST 24 (17-59) U/L ALT 23 (4-49) U/L Alkaline Phosphatase 114 (38-126) U/L Total Protein 7.5 (6.3-8.2) g/dL Albumin 4.7 (3.5-5.0) g/dL Lipase 359 H (23-300) U/L Urine Color Colorless Urine Appearance Clear (Clear) Urine pH 5.5 (5.0-8.0) Ur Specific [place] 1.030 (1.001-1.035) Urine Protein Trace H (Negative) Urine Glucose (UA) 4+ H (Negative) Urine Ketones 4+ H (Negative) Urine Blood Trace H (Negative) Urine Nitrite Negative (Negative) Urine Bilirubin Negative (Negative) Urine Urobilinogen <2.0 (<2.0) mg/dL Ur Leukocyte Esterase Negative (Negative) Urine RBC 1 (0-5) /hpf Acetone, Qual (Negative) 10/01/23 10/01/23 Range/Units 14:41 15:29 WBC (3.8-10.6) k/uL RBC (4.30-5.90) m/uL Hgb (13.0-17.5) gm/dL Hct (39.0-53.0) % MCV (80.0-100.0) fL MCH (25.0-35.0) pg MCHC (31.0-37.0) g/dL RDW (11.5-15.5) % Plt Count (150-450) k/uL MPV Neutrophils % % Lymphocytes % % Monocytes % % Eosinophils % % Basophils % % Neutrophils # (1.3-7.7) k/uL Lymphocytes # (1.0-4.8) k/uL Monocytes # (0-1.0) k/uL Eosinophils # (0-0.7) k/uL Basophils # (0-0.2) k/uL Sodium (137-145) mmol/L Potassium (3.5-5.1) mmol/L Chloride (98-107) mmol/L Carbon Dioxide (22-30) mmol/L Anion Gap mmol/L BUN (9-20) mg/dL Creatinine (0.66-1.25) mg/dL Est GFR (CKD-EPI)AfAm (>60 ml/min/1.73 sqM) Est GFR (CKD-EPI)NonAf (>60 ml/min/1.73 sqM) Glucose (74-99) mg/dL Plasma Lactic Acid Rafi 1.3 (0.7-2.0) mmol/L Calcium (8.4-10.2) mg/dL Total Bilirubin (0.2-1.3) mg/dL AST (17-59) U/L ALT (4-49) U/L Alkaline Phosphatase (38-126) U/L Total Protein (6.3-8.2) g/dL Albumin (3.5-5.0) g/dL Lipase (23-300) U/L Urine Color Urine Appearance (Clear) Urine pH (5.0-8.0) Ur Specific [place] (1.001-1.035) Urine Protein (Negative) Urine Glucose (UA) (Negative) Urine Ketones (Negative) Urine Blood (Negative) Urine Nitrite (Negative) Urine Bilirubin (Negative) Urine Urobilinogen (<2.0) mg/dL Ur Leukocyte Esterase (Negative) Urine RBC (0-5) /hpf Acetone, Qual Positive (Negative) Critical Care Time Critical Care Time: Yes Total Critical Care Time: 35 Disposition Clinical Impression: DKA (diabetic ketoacidosis) Disposition: ADMITTED IP TO THIS HOSP Condition: Fair Referrals: [facility],Clinic [Primary Care Provider] - 1-2 days Time of Disposition: 16:29
[2023-10-01 15:55] LABS: Appearance,Urine Clear (Clear); Bilirubin,Urine Negative (Negative); Blood,Urine Trace (Negative); Color,Urine Colorless; Glucose,Urine (UA) 4+ (Negative); Leukocyte Esterase,Urine Negative (Negative); Nitrite,Urine Negative (Negative); PH, Urine 5.5 (5.0-8.0); Protein,Urine Trace (Negative); RBC,Urine 1 /hpf (0-5); Urobilinogen,Urine <2.0 mg/dL (<2.0)
[2023-10-01 16:05] LABS: Ketones,Urine 4+ (Negative)
[2023-10-01 16:46] LABS: Glucose,Whole Blood 456 mg/dL (70-110)
[2023-10-01 16:57] LABS: VBG PH 7.42 (7.31-7.41)
[2023-10-01] MEDS: INSULIN REGULAR 100 UNIT/ML VIAL (IV) IV ONE (17:01)
[2023-10-01] MEDS: SODIUM CHLORIDE 0.9% 500 ML 500 ML IV ONE (17:02)
[2023-10-01] MEDS: SODIUM CHLORIDE 0.9% 1,000 ML IV ONE (17:02)
[2023-10-01] MEDS: SODIUM CHLORIDE 0.9% 1,000 ML IV SCH (17:02)
[2023-10-01] MEDS: INSULIN REGULAR 100 UNIT in SODIUM CHLORIDE 0.9% 100 ML IV SCH (17:02)
[2023-10-01 17:43] LABS: Glucose,Whole Blood 351 mg/dL (70-110)
[2023-10-01] MEDS ORDERED: NICOTINE 21MG/24HR PATCH TRANSDERM PRN (18:18)
[2023-10-01] MEDS ORDERED: MELATONIN 3 MG TABLET PO PRN (18:18)
[2023-10-01] MEDS ORDERED: ACETAMINOPHEN TAB 325 MG TAB PO PRN (18:18)
[2023-10-01] MEDS ORDERED: bisacodyL 5 MG TABLET.DR PO PRN (18:18)
[2023-10-01] MEDS ORDERED: NALOXONE 0.4 MG/ML 1 ML VIAL IV PRN (18:18)
[2023-10-01] MEDS ORDERED: Potassium Replacement Protocol 1 EACH MISC MISCELLANE PRN (18:19)
[2023-10-01] MEDS ORDERED: Magnesium Replacement Protocol 1 EACH MISC MISCELLANE PRN (18:19)
[2023-10-01] MEDS ORDERED: DEXTROSE 50% SYRINGE 50 ML IVP PRN ×2 (18:19)
--- NOTE | 2023-10-01 18:27 | P.HPIM ---
History of Present Illness H&P Date: 10/01/23 Patient is a 53-year-old with diabetes, asthma, prior pancreatitis, nicotine dependency, and obesity who presented with intractable nausea and vomiting. On arrival to the ER vital signs were within normal limits. Laboratory analysis was remarkable for white blood cell count of 18.7, sodium 136, carbon dioxide 13, BUN 35, glucose 566, anion gap of 23, calcium 10.3, acetone positive, urin alysis consistent with SGLT2 inhibitor use. Patient diagnosed with DKA by emergency department provider and given 2 L of normal saline, Reglan, Toradol, 10 units of IV insulin and started on insulin drip and IV fluids per DKA regiment. Patient seen and examined at bedside. He reports that on 09/28 he started developing some nausea and vomiting with some overall abdominal discomfort. He did continue to have nausea and vomiting with abdominal discomfort now and his left upper quadrant. He denies any sick contacts. No diarrhea. He decided to present to the hospital today because he became somewhat short of breath and felt like his lungs were on fire. He denies any stabbing-like chest discomfort or feeling like an elephant was sitting on his chest. He had been taking his diabetic medications as prescribed up until when he threw them up, he has not taken any insulin. He denies any history of DKA in the past. He reports that he had pancreatitis approximately a year and a half ago and this feels exactly the same. There was no cause found to his pancreatitis not associated with gallstones or drinking. Vital signs reviewed General: nontoxic, no distress, appears at stated age, dry mucous membranes Derm: warm, dry Eyes: EOMI, no lid lag, anicteric sclera, pupils equal round reactive to light ENT: Nose and ears atraumatic Cardiovascular: S1S2 reg, no murmur, no edema Lungs: clear to auscultation bilateral, no rhonchi, no rales, no wheeze, no accessory muscle use Abdominal: soft, tender to palpation left upper quadrant, no guarding Ext: no gross muscle atrophy, no contractures Neuro: CN II-XII grossly intact, No focal neuro deficits Psych: Alert, oriented, appropriate affect Assessment/Plan: Diabetic ketoacidosis -Suspect that blood sugar is only 566 due to SGLT2 inhibitor use -IV insulin until anion gap is closed, DKA algorithm in place for insulin adjustment -Serial BMP, magnesium, -Blood sugar every hour -Phosphorus every 4 hours until gap closes normal saline at 200 cc/h until blood sugar less than 300 -Hold Jardiance, metformin, and Lantus -Check CT abdomen and pelvis to see if pancreatitis could have possibly precipitated DKA -Start Protonix 40 mg IV daily Asthma without exacerbation -Resume ipratropium and albuterol 4 times daily as patient takes at home, Advair to switch to Symbicort 1 puff twice daily Nicotine dependency -Nicotine patch 21 mcg daily - cessation Imaging: As per HPI Data Review: As per HPI The patient is admitted with an anticipated greater than 2 midnight stay for evaluation of diabetic ketoacidosis requiring IV insulin infusion. Surrogate decision-maker: CODE STATUS:full DVT prophylaxis: lovenox Anticipated discharge date: 2-[address]: home This dictation was prepared using [employer] voice recognition software. Though every attempt is made to correct errors during dictation some may still exist. Past Medical History Past Medical History: Asthma, Diabetes Mellitus Additional Past Medical History / Comment(s): pancreatitis History of Any Multi-Drug Resistant Organisms: None Reported Past Surgical History: Ear Surgery Additional Past Surgical History / Comment(s): lumpectomy in left breast, LEft wrist gangrenous cyst removed, abdominal abscess sepsis Past Anesthesia/Blood Transfusion Reactions: No Reported Reaction Past Psychological History: Depression Smoking Status: Current every day smoker Past Alcohol Use History: Rare Past Drug Use History: Marijuana - Past Family History Father History Unknown: Yes Mother History Unknown: Yes Medications and Allergies Home Medications Medication Instructions Recorded Confirmed Type Atorvastatin [Lipitor] 20 mg PO HS 03/28/21 10/01/23 History Empagliflozin [Jardiance] 10 mg PO DAILY 10/23/21 10/01/23 History Fluticasone Propion/Salmeterol 1 puff INHALATION RT-BID 10/23/21 10/01/23 History [Advair 500-50 Diskus] Ipratropium/Albuter 20-100Mcg 1 puff INHALATION RT-QID 10/23/21 10/01/23 History [Combivent Respimat 20-100Mcg Inhaler] Sertraline [Zoloft] 200 mg PO DAILY 10/23/21 10/01/23 History risperiDONE 1 mg PO TID 10/23/21 10/01/23 History traZODone HCL [Desyrel] 50 mg PO HS 10/23/21 10/01/23 History Cholecalciferol (Vitamin D3) 50 mcg PO DAILY 10/01/23 10/01/23 History [Vitamin D3 (50 Mcg = 2000 Iu)] Insulin Glargine,Hum.rec.anlog 10 units SQ HS 10/01/23 10/01/23 History [Lantus Solostar Pen] metFORMIN HCL [Glucophage] 500 mg PO BID 10/01/23 10/01/23 History Allergies Allergy/AdvReac Type Severity Reaction Status Date / Time No Known Allergies Allergy Verified 10/01/23 17:45 Physical Exam Osteopathic Statement: *. No significant issues noted on an osteopathic s tructural exam other than those noted in the History and Physical/Consult. Vitals: Vital Signs Temp Pulse Resp BP Pulse Ox 10/01/23 17:22 97.6 F 95 20 136/96 99 10/01/23 14:03 97.4 F L 96 20 142/91 Intake and Output 10/01/23 10/01/23 10/01/23 06:59 14:59 22:59 Intake Total 13.606 Balance 13.606 Intake: Intake, IV Titration 13.606 Amount Insulin Regular 100 unit 13.606 In Sodium Chloride 0.9% 100 ml @ 0.1 UNITS/KG/HR 12.369 mls/hr IV .Q8H10M [facility] Rx#:[id number] Other: Weight 122.47 kg Results CBC & Chem 7: 10/01/23 14:41 10/01/23 14:41 Labs: Abnormal Lab Results - Last 24 Hours (Table) 10/01/23 10/01/23 10/01/23 Range/Units 14:41 14:41 14:41 WBC 18.7 H (3.8-10.6) k/uL Hct 53.1 H (39.0-53.0) % Neutrophils # 16.7 H (1.3-7.7) k/uL Lymphocytes # 0.9 L (1.0-4.8) k/uL VBG pH (7.31-7.41) VBG pCO2 (37-51) mmHg VBG HCO3 (24-28) mmol/L Sodium 136 L (137-145) mmol/L Carbon Dioxide 13 L (22-30) mmol/L BUN 35 H (9-20) mg/dL Glucose 566 H* (74-99) mg/dL POC Glucose (mg/dL) (70-110) mg/dL Calcium 10.3 H (8.4-10.2) mg/dL Lipase 359 H (23-300) U/L Urine Protein Trace H (Negative) Urine Glucose (UA) 4+ H (Negative) Urine Ketones 4+ H (Negative) Urine Blood Trace H (Negative) 10/01/23 10/01/23 10/01/23 Range/Units 16:41 16:44 17:41 WBC (3.8-10.6) k/uL Hct (39.0-53.0) % Neutrophils # (1.3-7.7) k/uL Lymphocytes # (1.0-4.8) k/uL VBG pH 7.42 H (7.31-7.41) VBG pCO2 30 L (37-51) mmHg VBG HCO3 19 L (24-28) mmol/L Sodium (137-145) mmol/L Carbon Dioxide (22-30) mmol/L BUN (9-20) mg/dL Glucose (74-99) mg/dL POC Glucose (mg/dL) 456 H 351 H (70-110) mg/dL Calcium (8.4-10.2) mg/dL Lipase (23-300) U/L Urine Protein (Negative) Urine Glucose (UA) (Negative) Urine Ketones (Negative) Urine Blood (Negative)
[2023-10-01 18:50] LABS: Glucose,Whole Blood 128 mg/dL (70-110)
[2023-10-01 18:59] LABS: African American GFR (CKD) >90 (>60 ml/min/1.73 sqM); Anion Gap 18 mmol/L; Blood Urea Nitrogen 37 mg/dL (9-20); Calcium 9.9 mg/dL (8.4-10.2); Carbon Dioxide 18 mmol/L (22-30); Chloride 106 mmol/L (98-107); Glucose 183 mg/dL (74-99); Non-African American GFR(CKD) 78 (>60 ml/min/1.73 sqM); Potassium 4.1 mmol/L (3.5-5.1); Sodium 142 mmol/L (137-145)
--- NOTE | 2023-10-01 19:05 | CT ---
EXAMINATION TYPE: CT abdomen pelvis wo con DATE OF EXAM: 10/01/2023 COMPARISON: 03/02/2017 HISTORY: pancreatitis CT DLP: 1208.4 mGycm Examination of the solid and hollow viscera is limited given the lack of contrast. FINDINGS: LUNG BASES: No evidence for nodule. No evidence for infiltrate. LIVER/GB: The gallbladder is unremarkable. No space-occupying hepatic lesion. PANCREAS: No pancreatic mass identified. No inflammatory process seen. SPLEEN: No evidence for splenomegaly. No intrasplenic lesions seen. ADRENALS: No adrenal nodules identified. No evidence for thickening. KIDNEYS: No evidence for renal mass. No nephrolithiasis. No hydronephrosis. BOWEL: Appendix has a normal appearance. No evidence of bowel obstruction. No inflammatory process. Lymph nodes: No evidence for adenopathy greater than 1 cm. Abdominal aorta: Atheromatous changes seen. No evidence for aneurysm. Genital organs: No significant abnormality. Other: No significant abnormality. IMPRESSION: NO CT EVIDENCE TO SUGGEST PANCREATITIS. NO ACUTE INTRA-ABDOMINAL PROCESS IDENTIFIED AT THIS TIME.
[2023-10-01] MEDS: D5-0.45% NACL WITH KCL 20MEQ/L 1,000 ML IV SCH (19:07)
[2023-10-01 19:46] LABS: Glucose,Whole Blood 177 mg/dL (70-110)
[2023-10-01 20:04] LABS: Glucose,Whole Blood 207 mg/dL (70-110)
[2023-10-01] MEDS: SYMBICORT 160-4.5 MCG INHALER INHALATION SCH (20:26)
[2023-10-01] MEDS: IPRATROPIUM-ALBUTEROL 3 ML NEB INHALATION SCH (20:26)
[2023-10-01 21:07] LABS: Glucose,Whole Blood 197 mg/dL (70-110)
[2023-10-01] MEDS: ONDANSETRON 4 MG/2 ML VIAL IVP PRN (21:27)
[2023-10-01 21:31] LABS: African American GFR (CKD) >90 (>60 ml/min/1.73 sqM); Anion Gap 14 mmol/L; Blood Urea Nitrogen 37 mg/dL (9-20); Carbon Dioxide 17 mmol/L (22-30); Chloride 106 mmol/L (98-107); Glucose 184 mg/dL (74-99); Non-African American GFR(CKD) >90 (>60 ml/min/1.73 sqM); Potassium 4.2 mmol/L (3.5-5.1); Sodium 137 mmol/L (137-145)
[2023-10-01] MEDS: HYDROcodone/APAP 5-325MG 1 EACH TAB PO PRN (21:33)
[2023-10-01 22:08] LABS: Glucose,Whole Blood 217 mg/dL (70-110)
[2023-10-01 23:10] LABS: Glucose,Whole Blood 218 mg/dL (70-110)
[2023-10-02] MEDS: risperiDONE 1 MG TAB PO SCH (00:08)
[2023-10-02] MEDS: traZODone HCL 50 MG TAB PO SCH (00:08)
[2023-10-02] MEDS: PANTOPRAZOLE 40 MG/10 ML VIAL IVP SCH (00:08)
[2023-10-02 00:20] LABS: Glucose,Whole Blood 241 mg/dL (70-110)
[2023-10-02 01:07] LABS: African American GFR (CKD) >90 (>60 ml/min/1.73 sqM); Anion Gap 14 mmol/L; Blood Urea Nitrogen 33 mg/dL (9-20); Carbon Dioxide 17 mmol/L (22-30); Chloride 105 mmol/L (98-107); Glucose 208 mg/dL (74-99); Non-African American GFR(CKD) >90 (>60 ml/min/1.73 sqM); Sodium 136 mmol/L (137-145)
[2023-10-02 01:16] LABS: Glucose,Whole Blood 184 mg/dL (70-110)
[2023-10-02 02:20] LABS: Glucose,Whole Blood 162 mg/dL (70-110)
[2023-10-02 03:16] LABS: Glucose,Whole Blood 146 mg/dL (70-110)
[2023-10-02 04:21] LABS: Glucose,Whole Blood 124 mg/dL (70-110)
[2023-10-02 05:13] LABS: Glucose,Whole Blood 147 mg/dL (70-110)
[2023-10-02 06:13] LABS: Glucose,Whole Blood 149 mg/dL (70-110)
[2023-10-02 07:12] LABS: Glucose,Whole Blood 171 mg/dL (70-110)
[2023-10-02 07:43] LABS: HCT 42.1 % (39.0-53.0); MCH 30.6 pg (25.0-35.0); Mean Platelet Volume 7.3; Platelet Count 240 k/uL (150-450); RBC 4.67 m/uL (4.30-5.90); RDW 12.3 % (11.5-15.5); WBC 12.8 k/uL (3.8-10.6)
[2023-10-02 07:48] LABS: HGB 14.3 gm/dL (13.0-17.5)
[2023-10-02 07:56] LABS: ALT 19 U/L (4-49); AST 23 U/L (17-59); African American GFR (CKD) >90 (>60 ml/min/1.73 sqM); Albumin 3.4 g/dL (3.5-5.0); Alkaline Phosphatase 89 U/L (38-126); Anion Gap 7 mmol/L; Blood Urea Nitrogen 26 mg/dL (9-20); Calcium 8.5 mg/dL (8.4-10.2); Carbon Dioxide 21 mmol/L (22-30); Chloride 108 mmol/L (98-107); Glucose 174 mg/dL (74-99); Magnesium 1.8 mg/dL (1.6-2.3); Non-African American GFR(CKD) >90 (>60 ml/min/1.73 sqM); Potassium 3.9 mmol/L (3.5-5.1); Sodium 136 mmol/L (137-145); Total Bilirubin 0.8 mg/dL (0.2-1.3); Total Protein 5.9 g/dL (6.3-8.2)
[2023-10-02 08:10] LABS: Glucose,Whole Blood 293 mg/dL (70-110)
[2023-10-02] MEDS: SERTRALINE 100 MG TAB PO SCH (08:14)
[2023-10-02] MEDS: ENOXAPARIN 40 MG/0.4 ML SYRINGE SQ SCH (08:14)
[2023-10-02 09:08] LABS: Glucose,Whole Blood 307 mg/dL (70-110)
[2023-10-02] MEDS ORDERED: DEXTROSE 50% SYRINGE 50 ML IVP PRN ×2 (09:44)
[2023-10-02] MEDS: INSULIN DETEMIR (LEVEMIR) 100 UNIT/ML SYR SQ SCH (09:56)
[2023-10-02 10:01] LABS: Glucose,Whole Blood 250 mg/dL (70-110)
[2023-10-02 12:01] LABS: Glucose,Whole Blood 212 mg/dL (70-110)
[2023-10-02] MEDS: INSULIN ASPART (NovoLOG) 100 UNIT/ML VIAL SQ SCH ×2 (12:12)
[2023-10-02 16:30] LABS: Glucose,Whole Blood 208 mg/dL (70-110)
--- NOTE | 2023-10-02 17:56 | P.PN ---
Subjective Progress Note Date: 10/02/23 (maye charting seen at 1130) Patient is a 53-year-old with diabetes, asthma, prior pancreatitis, nicotine dependency, and obesity who presented with intractable nausea and vomiting. On arrival to the ER vital signs were within normal limits. Laboratory analysis was remarkable for white blood cell count of 18.7, sodium 136, carbon dioxide 13, BUN 35, glucose 566, anion gap of 23, calcium 10.3, acetone positive, urinalysis consistent with SGLT2 inhibitor use. Patient diagnosed with DKA by emergency department provider and given 2 L of normal saline, Reglan, Toradol, 10 units of IV insulin and started on insulin drip and IV fluids per DKA regiment. Anion gap was closed x 3 on the morning of 10/01 and transition to long and short acting insulin. Patient seen and examined at bedside. present at bedside and states patient had run out of of needles for his Lantus, however she received them yesterday and ran out test strips which she [facility] not [facility]. Patient is feeling better, nausea and vomiting is still intermittent but much improved from yesterday. No abdominal pain. We discussed that he likely would need to come off of SGLT2 inhibitor due to recent episode of DKA and can discuss with the [facility] if it should be reinitiated. Vital signs reviewed General: Nontoxic, no distress, appears at stated age, poor dentition Cardiovascular: S1S2 reg, no murmur Lungs: CTA bilateral, no rhonchi, no rales, no accessory muscle use Abdominal: Soft, nontender to palpation, no guarding Ext: No gross muscle atrophy, no edema b/l lower extremities, no contractures Neuro: CN II-XI grossly intact, no focal neuro deficits Psych: Alert, oriented, appropriate affect Assessment/Plan: Diabetic ketoacidosis in a poorly controlled diabetic with A1c 13.9 -Stop insulin drip -Started on Levemir 10 units twice daily, sliding scale insulin, and NovoLog 3 units with meals -Check blood sugars before every meal and at bedtime -Will need to discuss with case filler to alert [facility] needs new testing supplies -Hold Jardiance and metformin. Consider DC home off of Jardiance -Repeat BMP in a.m. -Stop IV fluids -Continue with Protonix 40 mg IV daily, likely can be discontinued on discharge. - change to full liquid diet and advanced as tolerated to carb consistent Asthma without exacerbation -Resume ipratropium and albuterol 4 times daily as patient takes at home, Advair to switch to Symbicort 1 puff twice daily Nicotine dependency -Nicotine patch 21 mcg daily - cessatio Imaging: CT abdomen and pelvis: No acute process Data Review: Lab reviewed from today include CBC and basic metabolic profile remarkable for white blood cell count of 12.8, sodium 136, potassium 3.9, carbon dioxide 21, anion gap 17, blood sugar 174, A1c 13.9 with average blood sugar of 352 DVT prophylaxis: Lovenox Anticipated discharge date: Likely home in a.m. This dictation was prepared using [employer] voice recognition software. Though every attempt is made to correct errors during dictation some may still exist. Objective - Vital Signs Vital signs: Vital Signs Temp 97.9 F 10/02/23 08:25 Pulse 90 10/02/23 15:46 Resp 17 10/02/23 15:10 BP 119/72 10/02/23 15:10 Pulse Ox 95 10/02/23 15:10 FiO2 Intake & Output 10/01/23 10/02/23 10/02/23 18:59 06:59 18:59 Intake Total 13.606 245.083 424.558 Balance 13.606 245.083 424.558 Weight 122.47 kg 116.5 kg Intake: Intake, IV Titration 13.606 45.083 13.558 Amount Insulin Regular 100 unit 13.606 45.083 13.558 In Sodium Chloride 0.9% 100 ml @ 0.1 UNITS/KG/HR 12.369 mls/hr IV .Q8H10M [facility] Rx#:[id number] Oral 200 411 Other: Voiding Method Toilet # Voids 2 1 - Labs CBC & Chem 7: 10/02/23 07:05 10/02/23 07:02 Labs: Abnormal Lab Results - Last 24 Hours (Table) 10/01/23 10/01/23 10/01/23 Range/Units 18:01 18:49 19:43 WBC (3.8-10.6) k/uL Sodium (137-145) mmol/L Chloride (98-107) mmol/L Carbon Dioxide 18 L (22-30) mmol/L BUN 37 H (9-20) mg/dL Glucose 183 H (74-99) mg/dL POC Glucose (mg/dL) 128 H 177 H (70-110) mg/dL Hemoglobin A1c (<=6.0) % Phosphorus (2.5-4.5) mg/dL Total Protein (6.3-8.2) g/dL Albumin (3.5-5.0) g/dL 10/01/23 10/01/23 10/01/23 Range/Units 20:01 20:27 20:27 WBC (3.8-10.6) k/uL Sodium (137-145) mmol/L Chloride (98-107) mmol/L Carbon Dioxide 17 L (22-30) mmol/L BUN 37 H (9-20) mg/dL Glucose 184 H (74-99) mg/dL POC Glucose (mg/dL) 207 H (70-110) mg/dL Hemoglobin A1c (<=6.0) % Phosphorus 2.4 L (2.5-4.5) mg/dL Total Protein (6.3-8.2) g/dL Albumin (3.5-5.0) g/dL 10/01/23 10/01/23 10/01/23 Range/Units 21:06 22:06 23:09 WBC (3.8-10.6) k/uL Sodium (137-145) mmol/L Chloride (98-107) mmol/L Carbon Dioxide (22-30) mmol/L BUN (9-20) mg/dL Glucose (74-99) mg/dL POC Glucose (mg/dL) 197 H 217 H 218 H (70-110) mg/dL Hemoglobin A1c (<=6.0) % Phosphorus (2.5-4.5) mg/dL Total Protein (6.3-8.2) g/dL Albumin (3.5-5.0) g/dL 10/02/23 10/02/23 10/02/23 Range/Units 00:18 00:22 01:13 WBC (3.8-10.6) k/uL Sodium 136 L (137-145) mmol/L Chloride (98-107) mmol/L Carbon Dioxide 17 L (22-30) mmol/L BUN 33 H (9-20) mg/dL Glucose 208 H (74-99) mg/dL POC Glucose (mg/dL) 241 H 184 H (70-110) mg/dL Hemoglobin A1c (<=6.0) % Phosphorus (2.5-4.5) mg/dL Total Protein (6.3-8.2) g/dL Albumin (3.5-5.0) g/dL 10/02/23 10/02/23 10/02/23 Range/Units 02:19 03:13 04:17 WBC (3.8-10.6) k/uL Sodium (137-145) mmol/L Chloride (98-107) mmol/L Carbon Dioxide (22-30) mmol/L BUN (9-20) mg/dL Glucose (74-99) mg/dL POC Glucose (mg/dL) 162 H 146 H 124 H (70-110) mg/dL Hemoglobin A1c (<=6.0) % Phosphorus (2.5-4.5) mg/dL Total Protein (6.3-8.2) g/dL Albumin (3.5-5.0) g/dL 10/02/23 10/02/23 10/02/23 Range/Units 05:11 06:12 07:02 WBC (3.8-10.6) k/uL Sodium 136 L (137-145) mmol/L Chloride 108 H (98-107) mmol/L Carbon Dioxide 21 L (22-30) mmol/L BUN 26 H (9-20) mg/dL Glucose 174 H (74-99) mg/dL POC Glucose (mg/dL) 147 H 149 H (70-110) mg/dL Hemoglobin A1c (<=6.0) % Phosphorus (2.5-4.5) mg/dL Total Protein 5.9 L (6.3-8.2) g/dL Albumin 3.4 L (3.5-5.0) g/dL 10/02/23 10/02/23 10/02/23 Range/Units 07:05 07:05 07:09 WBC 12.8 H (3.8-10.6) k/uL Sodium (137-145) mmol/L Chloride (98-107) mmol/L Carbon Dioxide (22-30) mmol/L BUN (9-20) mg/dL Glucose (74-99) mg/dL POC Glucose (mg/dL) 171 H (70-110) mg/dL Hemoglobin A1c 13.9 H (<=6.0) % Phosphorus (2.5-4.5) mg/dL Total Protein (6.3-8.2) g/dL Albumin (3.5-5.0) g/dL 10/02/23 10/02/23 10/02/23 Range/Units 08:09 09:04 10:00 WBC (3.8-10.6) k/uL Sodium (137-145) mmol/L Chloride (98-107) mmol/L Carbon Dioxide (22-30) mmol/L BUN (9-20) mg/dL Glucose (74-99) mg/dL POC Glucose (mg/dL) 293 H 307 H 250 H (70-110) mg/dL Hemoglobin A1c (<=6.0) % Phosphorus (2.5-4.5) mg/dL Total Protein (6.3-8.2) g/dL Albumin (3.5-5.0) g/dL 10/02/23 10/02/23 Range/Units 12:00 16:29 WBC (3.8-10.6) k/uL Sodium (137-145) mmol/L Chloride (98-107) mmol/L Carbon Dioxide (22-30) mmol/L BUN (9-20) mg/dL Glucose (74-99) mg/dL POC Glucose (mg/dL) 212 H 208 H (70-110) mg/dL Hemoglobin A1c (<=6.0) % Phosphorus (2.5-4.5) mg/dL Total Protein (6.3-8.2) g/dL Albumin (3.5-5.0) g/dL
[2023-10-02 20:29] LABS: Glucose,Whole Blood 181 mg/dL (70-110)
[2023-10-02] MEDS: ATORVASTATIN 20 MG TAB PO SCH (22:35)
[2023-10-03 05:54] LABS: Glucose,Whole Blood 185 mg/dL (70-110)
[2023-10-03] MEDS: PANTOPRAZOLE 40 MG TABLET PO SCH (07:12)
[2023-10-03 07:42] VITALS: TEMP 97.4
[2023-10-03 11:44] LABS: Glucose,Whole Blood 183 mg/dL (70-110)
--- NOTE | 2023-10-03 11:48 | P.DS ---
Providers Date of admission: 10/01/23 16:17 Expected date of discharge: 10/03/23 Attending physician: Lor Dumont DO Primary care physician: [facility] Hospital Course: Discharge Diagnosis: DKA Poorly controlled diabetes mellitus type 2 with hemoglobin A1c of 13.9%. Asthma without exacerbation Nicotine dependency, recommend smoking cessation. Hospital Course: Patient is a 53-year-old with diabetes, asthma, prior pancreatitis, nicotine dependency, and obesity who presented to the hospital on 10/01/2023 with intractable nausea and vomiting and was found to be in DKA. Diabetic ketoacidosis in a poorly controlled diabetic with A1c 13.9. Patient initially started on insulin infusion and later transition to scheduled and long-acting insulin along with NovoLog sliding scale. Blood glucose level is much better controlled. Patient educated on the importance of medication compliance, [facility]en [facility] at bedside reports that patient stopped taking his insulin as prescribed approximately 1 year ago. Patient was provided with glucometer and testing strips at this time. Discussed with patient and at bedside, patient will need to go straight to [facility] upon discharge to obtain further diabetic supplies and testing strips and bring your hospital discharge instructions along with you. You will need to monitor your blood glucose levels 4 times daily before each meal and at bedtime and document these findings and a daily log to bring with you to your follow-up appointment at [facility]. Jardiance was discontinued secondary to DKA. Patient's Lantus was scheduled 10 units twice daily and patient was placed on scheduled NovoLog 3 units 3 times daily with meals. Patient instructed on the importance of monitoring his blood glucose levels 4 times daily and to document these findings and a daily log/journal to bring with him to his next appointment with PCP. Patient currently medically stable at this time and free from any complaints or concerns. Patient and patient's at bedside were educated on discharge instructions and verbalized understanding. Physical examination: Patient seen and examined at bedside. Vital signs reviewed and stable. General: Nontoxic, no distress and appears stated age. Derm: Skin warm and dry, normal coloration for ethnicity. Head: Atraumatic, normocephalic and symmetric. Eyes: EOMs intact, no lid lag, and anicteric sclera Mouth: no lip lesions, mucus membranes moist Cardiovascular: regular rate and rhythm with normal S1S2, no murmur, positive posterior tibial pulses bilaterally, and cap refill < 2 seconds. Lungs: Respirations even, regular, and unlabored on room air. Lungs CTA bilaterally, no rhonchi, no rales, no wheezing, and no accessory muscle usage. Abdominal: soft, nontender to palpation, no guarding, no appreciable organomegaly Ext: ROM intact. No gross muscle atrophy, no edema, no contractures Neuro: Speech clear, face symmetrical and CN II-XII grossly intact with no noted focal neuro deficits Psych: Alert and oriented to person, place, time, and situation. Appropriate and pleasant affect. A total of 38 minutes of time were spent preparing this complex discharge summary. Pt was discharged on 10/03/2023 at 11:47 AM Patient was seen independently by Nurse Practitioner. This document was prepared using [employer] dictation software. Please allow for errors in gas line servicer while rare they do occur. I reviewed the documentation as provided by the MATTEO above, who is the original author of this note. I agree with the documented assessment and plan, with the following changes: none Patient Condition at Discharge: Stable Plan - Discharge Summary Discharge Rx Participant: No New Discharge Prescriptions: New Nicotine 21Mg/24Hr Patch [Habitrol] 1 patch TRANSDERM DAILY PRN 30 Days #30 patch PRN Reason: Nicotine Cravings INSULIN ASPART (NovoLOG) [NovoLOG (formulary)] 3 unit SQ AC-TID 30 Days #1 pen Continue Sertraline [Zoloft] 200 mg PO DAILY Ipratropium/Albuter 20-100Mcg [Combivent Respimat 20-100Mcg Inhaler] 1 puff INHALATION RT-QID Fluticasone Propion/Salmeterol [Advair 500-50 Diskus] 1 puff INHALATION RT- BID traZODone HCL [Desyrel] 50 mg PO HS metFORMIN HCL [Glucophage] 500 mg PO BID Cholecalciferol (Vitamin D3) [Vitamin D3 (50 Mcg = 2000 Iu)] 50 mcg PO DAILY Atorvastatin [Lipitor] 20 mg PO HS risperiDONE 1 mg PO TID Changed Insulin Glargine,Hum.rec.anlog [Lantus Solostar Pen] 10 units SQ BID 30 Days #1 pen Discontinued Empagliflozin [Jardiance] 10 mg PO DAILY Discharge Medication List Atorvastatin [Lipitor] 20 mg PO HS 03/28/21 [History] Fluticasone Propion/Salmeterol [Advair 500-50 Diskus] 1 puff INHALATION RT-BID 10/23/21 [History] Ipratropium/Albuter 20-100Mcg [Combivent Respimat 20-100Mcg Inhaler] 1 puff INHALATION RT-QID 10/23/21 [History] Sertraline [Zoloft] 200 mg PO DAILY 10/23/21 [History] risperiDONE 1 mg PO TID 10/23/21 [History] traZODone HCL [Desyrel] 50 mg PO HS 10/23/21 [History] Cholecalciferol (Vitamin D3) [Vitamin D3 (50 Mcg = 2000 Iu)] 50 mcg PO DAILY 10/01/23 [History] metFORMIN HCL [Glucophage] 500 mg PO BID 10/01/23 [History] INSULIN ASPART (NovoLOG) [NovoLOG (formulary)] 3 unit SQ AC-TID 30 Days #1 pen 10/03/23 [Rx] Insulin Glargine,Hum.rec.anlog [Lantus Solostar Pen] 10 units SQ BID 30 Days #1 pen 10/03/23 [Rx] Nicotine 21Mg/24Hr Patch [Habitrol] 1 patch TRANSDERM DAILY PRN 30 Days #30 patch 10/03/23 [Rx] Follow up Appointment(s)/Referral(s): [facility],Clinic [Primary Care Provider] - 1-2 days Patient Instructions/Handouts: Diabetic Ketoacidosis (DC) Activity/Diet/Wound Care/Special Instructions: Activity: As tolerated. Take breaks as needed. Diet: Heart healthy and carb consistent diet. Avoid salts, or foods with hidden salts such as canned or boxed foods and frozen dinners. Extra salt makes your heart work harder and traps the fluid in your body for longer. Special Instructions: Take all of your medications as directed and remember to keep all of your doctor's appointments and follow-up as needed. As we discussed, it is important for you to go straight to [facility] upon discharge to obtain diabetic supplies and testing strips and bring your hospital discharge instructions along with you. You will need to monitor your blood glucose levels 4 times daily before each meal and at bedtime and document these findings and a daily log to bring with you to your follow-up appointment at [facility]. Jardiance was discontinued secondary to DKA. Thank you for allowing us to participate in your care, it was truly a pleasure having you for our patient!!! . Discharge/Stand Alone Forms: Work/School Release Discharge Disposition: HOME SELF-CARE
[2023-10-03 11:49] VITALS: BP 138/89; PULSE 96; RESP 18
== END 2023-10-03 14:12 | disposition home or self-care (01) | DRG 639 ==
LOC: SUPCPDRO 13:49 → EC 13:49 → 3SCARD 16:17
PROVIDERS: ADMIT Internal Medicine; ATTEND Internal Medicine
DX: E11.10 Type 2 diabetes mellitus with ketoacidosis without coma (principal); J45.909 Unspecified asthma, uncomplicated; F17.200 Nicotine dependence, unspecified, uncomplicated; F32.A Depression, unspecified; Z79.4 Long term (current) use of insulin; Z79.51 Long term (current) use of inhaled steroids; Z79.84 Long term (current) use of oral hypoglycemic drugs; Z79.899 Other long term (current) drug therapy
CPT/HCPCS: 36415; 74176; 80048; 80051; 80053; 81001; 82009; 82565; 82803; 82947; 83036; 83605; 83690; 83735; 84100; 84520; 85025; 85027; 94640; 96374; 96375; 99285